=== PATIENT | female | born 1990 | race Hispanic/Latino ===

== ENCOUNTER 2023-01-10 13:20 | Emergency (ER) | payer OTHER, SELFPAY ==
[2023-01-10] VITALS (7 sets, daily range): BP systolic 118–141; BP diastolic 67–89; PULSE 80–89; RESP 18–22; TEMP 36.6–36.9; O2SAT 98–99; BMI 41.5
[2023-01-10 14:14] LABS: Add Manual Diff / Slide Review NO; Basophils Absolute Auto 100 /uL (0-100); Basophils Percent Auto 1.1 % (0-2); Eosinophils Absolute Auto 400 /uL (0-450); Eosinophils Percent Auto 4.8 % (2-4); Hematocrit 36.2 % (36-46); Hemoglobin 12.1 g/dL (12.0-16.0); Lymphocytes Absolute Auto 3200 /uL (1100-4500); Lymphocytes Percent Auto 40.6 % (25-40); Mean Corpuscular HGB Conc 33.3 % (30-36); Mean Corpuscular Hemoglobin 25.2 PG (26-34); Mean Corpuscular Volume 75.5 fL (80-100); Monocytes Absolute Auto 700 /uL (0-900); Monocytes Percent Auto 8.6 % (3-14); Neutrophils Absolute Auto 3600 /uL (1500-7000); Neutrophils Percent Auto 44.9 % (50-75); Platelet Count 361 X10^3/uL (150-400); Red Blood Cell Count 4.79 X10^6/uL (4.0-5.2); Red Cell Distribution Width 18.2 % (11.6-14.8)
--- NOTE | 2023-01-10 14:30 | PC.NURSE ---
pt states that she is soaking through 1-2 pads an hour.
[2023-01-10 14:38] LABS: BUN Creatinine Ratio 15.1 (6-22); Blood Urea Nitrogen 11 mg/dL (7-17); Calcium 9.4 mg/dL (8.4-10.2); Carbon Dioxide 24 mmol/L (22-32); Chloride 105 mmol/L (98-107); Estimated Glomerular Filt Rate > 60 mL/min (>60); Glucose 107 mg/dL (70-100); HEMOLYSIS < 15 (0-50); Potassium 3.9 mmol/L (3.4-5.1); Sodium 138 mmol/L (137-145)
--- NOTE | 2023-01-10 14:52 | ED.FEMALEGU ---
HPI - Female Genitourinary <Cholo Castro PA-C - Last Filed: 01/10/23 17:49> General Chief complaint: Vaginal Bleeding Stated complaint: stopped taking bc/excessive bleeding x2 days Time Seen by Provider: 01/10/23 14:12 Source: patient Mode of arrival: Ambulatory History of Present Illness HPI Narrative: 32-year-old female with a history of uterine polyps presents to the ED with 1 day of heavy vaginal bleeding. Patient is under the care of OBGYN Dr. Magdalena [facility]. Patient has been on control, without taking the placebo pills in between. Patient started experiencing some spotting and pelvic cramping, following which her OBGYN recommended cessation of the control for 5 days and then resuming again. Patient is on the 5th day of cessation today, states that she has been soaking a pad under 2 hours. Patient denies fever, chills, abdominal pain, nausea, vomiting, lightheadedness, chest pain, shortness of breath, syncope. Patient denies being . Patient is currently scheduled to have the uterine polyps removed in January. Patient called her OBGYN this morning, who sent her to the ED for further evaluation. Related Data Allergies Allergy/AdvReac Type Severity Reaction Status Date / Time ibuprofen Allergy Verified 01/10/23 13:28 Penicillins Allergy Verified 01/10/23 13:28 Review of Systems <Cholo Castro PA-C - Last Filed: 01/10/23 17:49> Constitutional Constitutional: Denies chills, Denies fatigue, Denies fever(s), Denies frequent falls, Denies lethargy and Denies weakness Eyes Eyes: Denies change in vision, Denies eye discharge, Denies irritation and Denies loss of vision ENT Ears, Nose, Mouth, and Throat: Denies change in voice, Denies dizziness, Denies neck pain, Denies sore throat and Denies throat swelling Cardiovascular Cardiovascular: Denies chest pain, Denies irregular heart rhythm, Denies lightheadedness, Denies palpitations, Denies dyspnea, Denies dyspnea on exertion and Denies orthopnea Respiratory Respiratory: Denies cough, Denies dyspnea, Denies dyspnea on exertion and Denies wheezing Gastrointestinal Gastrointestinal: Denies abdominal pain, Denies change in bowel habits, Denies diarrhea, Denies nausea and Denies vomiting Genitourinary Genitourinary: Reports menorrhagia Musculoskeletal Musculoskeletal: Denies neck pain and Denies numbness Integumentary/Breasts Skin/Breast: Denies pruritus, Denies erythema, Denies rash and Denies wounds Neurologic Neurologic: Denies behavioral changes, Denies confusion, Denies dizziness, Denies frequent falls, Denies loss of vision, Denies numbness and Denies weakness Psychiatric Psychiatric: Denies anxiety, Denies behavioral changes, Denies confusion, Denies depression, Denies homicidal ideation and Denies suicidal ideation Endocrine Endocrine: Denies fatigue, Denies flushing and Denies palpitations Hematologic/Lymphatic Hematologic/Lymphatic: Denies easy bruising Allergic/Immunologic Allergic/Immunologic: Denies urticaria, Denies throat swelling and Denies wheezing Patient History <Cholo Castro PA-C - Last Filed: 01/10/23 17:49> Substance Use Type: does not use Exam <Cholo Castro PA-C - Last Filed: 01/10/23 17:49> Narrative Exam Narrative: Const General:?cooperative, healthy appearing and comfortable [facility] Head:?normal to inspection Ears:?hearing grossly normal bilaterally Nose:?external nose normal Face and sinus:?normal facial exam and sinuses nontender Mouth:?oral mucosae normal Throat:?posterior oropharynx normal Eyes General:?appearance normal, both eyes and all related structures Neck Neck:?normal visual inspection and no lymphadenopathy noted Resp Effort & Inspection:?normal respiratory effort Auscultation:?clear to auscultation bilaterally Cardio Rate:?regular rate Rhythm:?regular rhythm GI Abdomen is soft, nondistended, nontender to palpation. Neuro General:?patient alert, patient awake and patient oriented x3 Initial Vital Signs Initial Vital Signs: Vital Signs Temperature 97.9 F 01/10/23 13:28 Pulse Rate 89 01/10/23 13:28 Respiratory Rate 18 01/10/23 13:28 Blood Pressure 126/83 01/10/23 13:28 Pulse Oximetry 98 01/10/23 13:28 Oxygen Delivery Method Room Air 01/10/23 13:28 <Jason Nicole MD - Last Filed: 01/11/23 08:05> Initial Vital Signs Initial Vital Signs: Vital Signs Temperature 97.9 F 01/10/23 13:28 Pulse Rate 89 01/10/23 13:28 Respiratory Rate 18 01/10/23 13:28 Blood Pressure 126/83 01/10/23 13:28 Pulse Oximetry 98 01/10/23 13:28 Oxygen Delivery Method Room Air 01/10/23 13:28 Course <Cholo Castro PA-C - Last Filed: 01/10/23 17:49> Orders Ordered: ED Orders 01/10/23 13:36 Type and Screen Stat 01/10/23 13:52 Basic Metabolic Panel Stat Complete Blood Count AUTO DIFF Stat 01/10/23 14:50 Urine Culture Stat Urine Microscopic Stat Vital Signs Vital signs: Vital Signs - 8 hr 01/10/23 13:28 01/10/23 14:42 01/10/23 14:45 Temperature 97.9 F Pulse Rate 89 83 Respiratory Rate 18 Blood Pressure 126/83 118/67 Pulse Oximetry 98 99 Oxygen Delivery Method Room Air 01/10/23 14:45 01/10/23 14:55 01/10/23 14:55 Temperature Pulse Rate 82 89 Respiratory Rate 18 18 Blood Pressure 141/89 H Pulse Oximetry 99 99 Oxygen Delivery Method 01/10/23 15:00 01/10/23 15:00 01/10/23 15:28 Temperature 98.5 F Pulse Rate 80 Respiratory Rate 22 Blood Pressure 136/78 Pulse Oximetry 99 Oxygen Delivery Method 01/10/23 15:30 01/10/23 15:30 Temperature Pulse Rate 89 Respiratory Rate 20 Blood Pressure 140/73 Pulse Oximetry 98 Oxygen Delivery Method <Jason Nicole MD - Last Filed: 01/11/23 08:05> Orders Ordered: ED Orders 01/10/23 13:36 Type and Screen Stat 01/10/23 13:52 Basic Metabolic Panel Stat Complete Blood Count AUTO DIFF Stat 01/10/23 14:50 Urine Culture Stat Urine Microscopic Stat Vital Signs Vital signs: Vital Signs - 8 hr 01/10/23 13:28 01/10/23 14:42 01/10/23 14:45 Temperature 97.9 F Pulse Rate 89 83 Respiratory Rate 18 Blood Pressure 126/83 118/67 Pulse Oximetry 98 99 Oxygen Delivery Method Room Air 01/10/23 14:45 01/10/23 14:55 01/10/23 14:55 Temperature Pulse Rate 82 89 Respiratory Rate 18 18 Blood Pressure 141/89 H Pulse Oximetry 99 99 Oxygen Delivery Method 01/10/23 15:00 01/10/23 15:00 01/10/23 15:28 Temperature 98.5 F Pulse Rate 80 Respiratory Rate 22 Blood Pressure 136/78 Pulse Oximetry 99 Oxygen Delivery Method 01/10/23 15:30 01/10/23 15:30 Temperature Pulse Rate 89 Respiratory Rate 20 Blood Pressure 140/73 Pulse Oximetry 98 Oxygen Delivery Method MDM - Female Genitourinary <Hyma CHRIS Castro - Last Filed: 01/10/23 17:49> Lab Data 01/10/23 13:52 01/10/23 13:52 Labs: Lab Results 01/10/23 01/10/23 Range/Units 13:52 14:50 WBC 8.0 (4.5-11.0) X10^3/uL RBC 4.79 (4.0-5.2) X10^6/uL Hgb 12.1 (12.0-16.0) g/dL Hct 36.2 (36-46) % MCV 75.5 L (80-100) fL MCH 25.2 L (26-34) PG MCHC 33.3 (30-36) % RDW 18.2 H (11.6-14.8) % Plt Count 361 (150-400) X10^3/uL Neut % (Auto) 44.9 L (50-75) % Lymph % (Auto) 40.6 H (25-40) % [place] % (Auto) 8.6 (3-14) % Eos % (Auto) 4.8 H (2-4) % Baso % (Auto) 1.1 (0-2) % Neut # (Auto) 3600 (8525-8780) /uL Lymph # (Auto) 3200 (8381-6259) /uL [place] # (Auto) 700 (0-900) /uL Eos # (Auto) 400 (0-450) /uL Baso # (Auto) 100 (0-100) /uL Sodium 138 (137-145) mmol/L Potassium 3.9 (3.4-5.1) mmol/L Chloride 105 (98-107) mmol/L Carbon Dioxide 24 (22-32) mmol/L BUN 11 (7-17) mg/dL Creatinine 0.73 (0.52-1.04) mg/dL Estimated GFR > 60 (>60) mL/min BUN/Creatinine Ratio 15.1 (6-22) Glucose 107 H (70-100) mg/dL Calcium 9.4 (8.4-10.2) mg/dL Urine RBC 10-30/hpf H (0-5/HPF) Urine WBC 5-10/hpf H (0-5/HPF) Ur Squamous Epith Cells 1-5 /hpf (0-5/HPF) Urine Bacteria Few (2-10) H (None) Ur Culture Indicated? Specimen cultured Point of Care Testing Test Results Negative Urine Dip Bedside Urine Glucose Negative Bedside Urine Bilirubin - Negative Bedside Urine Ketone - Negative Urine Specific [place] 1.025 Bedside Urine Occult Blood +++ Bedside Urine pH 6.0 Bedside Urine Protein - Negative Bedside Urine Urobilinogen - Negative Bedside Urine Nitrite - Negative Bedside Urine Leukocytes - Negative Esterase MDM Narrative Medical decision making narrative: 32-year-old female with a history of uterine polyps presents to the ED with 1 day of heavy vaginal bleeding. Concern for menorrhagia versus uterine polyps versus anemia versus versus other. Will obtain labs, urine hCG, UA. Labs within normal limits and H&H is stable. Urine hCG is negative. UA shows urine WBCs, however patient is asymptomatic and joint decision made to not treat at this time. Given that patient is stable, recommend follow-up with her OBGYN as soon as possible. Recommend ibuprofen. ED return precautions were discussed in detail with patient. She verbalized understanding. Medical records reviewed: Yes <Jason Nicole MD - Last Filed: 01/11/23 08:05> Lab Data Labs: Lab Results 01/10/23 01/10/23 Range/Units 13:52 14:50 WBC 8.0 (4.5-11.0) X10^3/uL RBC 4.79 (4.0-5.2) X10^6/uL Hgb 12.1 (12.0-16.0) g/dL Hct 36.2 (36-46) % MCV 75.5 L (80-100) fL MCH 25.2 L (26-34) PG MCHC 33.3 (30-36) % RDW 18.2 H (11.6-14.8) % Plt Count 361 (150-400) X10^3/uL Neut % (Auto) 44.9 L (50-75) % Lymph % (Auto) 40.6 H (25-40) % [place] % (Auto) 8.6 (3-14) % Eos % (Auto) 4.8 H (2-4) % Baso % (Auto) 1.1 (0-2) % Neut # (Auto) 3600 (0247-6803) /uL Lymph # (Auto) 3200 (5863-9471) /uL [place] # (Auto) 700 (0-900) /uL Eos # (Auto) 400 (0-450) /uL Baso # (Auto) 100 (0-100) /uL Sodium 138 (137-145) mmol/L Potassium 3.9 (3.4-5.1) mmol/L Chloride 105 (98-107) mmol/L Carbon Dioxide 24 (22-32) mmol/L BUN 11 (7-17) mg/dL Creatinine 0.73 (0.52-1.04) mg/dL Estimated GFR > 60 (>60) mL/min BUN/Creatinine Ratio 15.1 (6-22) Glucose 107 H (70-100) mg/dL Calcium 9.4 (8.4-10.2) mg/dL Urine RBC 10-30/hpf H (0-5/HPF) Urine WBC 5-10/hpf H (0-5/HPF) Ur Squamous Epith Cells 1-5 /hpf (0-5/HPF) Urine Bacteria Few (2-10) H (None) Ur Culture Indicated? Specimen cultured Point of Care Testing Test Results Negative Urine Dip Bedside Urine Glucose Negative Bedside Urine Bilirubin - Negative Bedside Urine Ketone - Negative Urine Specific [place] 1.025 Bedside Urine Occult Blood +++ Bedside Urine pH 6.0 Bedside Urine Protein - Negative Bedside Urine Urobilinogen - Negative Bedside Urine Nitrite - Negative Bedside Urine Leukocytes - Negative Esterase Discharge Plan Departure Patient Disposition: Home Clinical Impression: Menometrorrhagia Instructions: DI for Menorrhagia Activity Restrictions/Additional Instructions: You were evaluated in the ED today for heavier than usual vaginal bleeding. Your bleeding could be due to multiple reasons including cessation of the control, polyps, other reasons. Your blood work is reassuring, you are not anemic. Please follow-up with your OBGYN Dr. Magdalena Cortés for further evaluation as soon as possible. Please return to the ED if you continue to have heavy vaginal bleeding, you experience chest pain, shortness of breath, lightheadedness. You may take ibuprofen 800 mg 3 times a day with food which can help control the bleeding. Stand Alone Forms: Patient Portal/API ED Sign-out <Jason Nicole MD - Last Filed: 01/11/23 08:05> Cosign ED Attending Cossimona[place] Attestation: I was immediately available in the department for consultation. ?This documentation has been reviewed and I agree with assessment and plan. Supervised by Jason Nicole MD
[2023-01-10 15:25] LABS: Bacteria Urine Few (2-10); Culture Indicated Urine Specimen Cultured; RBC Urine 10-30/HPF (0-5/HPF); Squamous Epithelial Cell Urine 1-5 /HPF (0-5/HPF); WBC Urine 5-10/HPF (0-5/HPF)
== END 2023-01-10 15:35 | disposition home or self-care (01) ==
PROVIDERS: Emergency Medicine; Emergency Provider Student in an Organized Health Care Education/Training Program
DX: N92.1 Excessive and frequent menstruation with irregular cycle (principal)
CPT/HCPCS: 80048; 81003; 81015; 81025; 85025; 87086; 99282; 99283

== ENCOUNTER 2023-03-02 08:26 | Emergency (ER) | payer OTHER, SELFPAY ==
[2023-03-02 08:38] VITALS: BP 123/76; PULSE 83; RESP 16; TEMP 35.9; O2SAT 98; BMI 42.5
--- NOTE | 2023-03-02 08:54 | ED_ITS ---
HPI - Dizziness General Chief Complaint: Dizziness Stated Complaint: bad vertigo episode last night/head hurts/ Time Seen by Provider: 03/02/23 08:51 Source: patient Mode of arrival: Ambulatory Limitations: no limitations History of Present Illness HPI Narrative: This a 32-year-old female on oral contraceptives with history of 1 prior episode of vertigo who presents with complaint dizziness or spinning of her head and room. She states it started last night fairly abruptly while she was eating dinner. She states she has had similar symptoms in the past but several years ago. She notes she is had recent upper respiratory infection, her child tested positive for rhinovirus recently with an upper respiratory infection. She is had nasal congestion. Patient denies any fullness ears or hearing loss. She states she did develop a headache today. Was not present yesterday. She is felt generally weak but no numbness, tingling or lateralizing weakness. Patient states no loss of bowel or bladder control. No chest pain or shortness of breath. She is had nausea but no vomiting. No diarrhea or constipation. No dysuria urgency or frequency. No rash or skin changes no fevers. Patient states only medications oral contraceptives. She did have a uterine polyp removed vaginally approximately a week. She states this was uneventful and she was treated with something for yeast infection. She states no other surgeries. She is reported allergies to penicillin with angioedema and rash and ibuprofen with swelling of her whole body. No tobacco, no alcohol or illicit. She did take some Dramamine last night which she states was somewhat helpful for symptoms. She is accompanied by her . Related Data Previous Rx's Medication Instructions Recorded meclizine 25 mg chewable tablet 50 mg (2 x 25 mg) PO QID PRN 03/02/23 dizziness #20 tabs ondansetron 4 mg disintegrating 4 mg PO Q6H PRN nausea and 03/02/23 tablet vomiting #10 tabs prednisone 10 mg tablets in a dose See Rx Instructions PO .COMPLEX 03/02/23 pack #45 ea Allergies Allergy/AdvReac Type Severity Reaction Status Date / Time ibuprofen Allergy Swelling Verified 03/02/23 08:44 of body Penicillins Allergy Swelling Verified 03/02/23 08:44 of Lip/Tongue/Throat Review of Systems Review of Systems ROS Unobtainable: All systems reviewed & are unremarkable except as noted in HPI and below Patient History Social History Smoking Status: Never smoker Smoking Status: Never smoker Substance Use Type: does not use Exam Narrative Exam Narrative: GEN: well nourished, well appearing e-mail, alert and oriented x 3, patient appears to be in mild distress. HEENT: Atraumatic, pupils are equal round reactive to light, extraocular movements are intact, no nystagmus but does worsening symptoms, nares are clear, TMs show a mild amount of fluid bilaterally no erythema, TMs are retracted with no loss of light reflex. Normal canal bilaterally, there is no conjunctival pallor. Throat is clear without any exudates, erythema, tonsillar enlargement or uvular deviation, no facial droop. No meningeal signs. HEART: Regular rate and rhythm without murmur, clicks, rubs. LUNGS:Lungs clear to auscultation, no wheezes, rales, crackles, chest moves symmetrically ABD:bowel sounds normal, soft, non-tender, no guarding, rebound, rigidity, no masses noted, no hepatosplenomegaly :No CVA tenderness MSCL: Non-tender, no muscle atrophy, muscles strength 5/5 upper and lower extremities, full range of motion. NEURO:CN 2-12 intact, sensation normal, finger nose finger test normal, heel smith test normal. No dysarthria or aphasia. SKIN: No rash, erythema or other skin changes noted. Initial Vital Signs Initial Vital Signs: Vital Signs Temperature 96.7 F L 03/02/23 08:38 Pulse Rate 83 03/02/23 08:38 Respiratory Rate 16 03/02/23 08:38 Blood Pressure 123/76 03/02/23 08:38 Pulse Oximetry 98 03/02/23 08:38 Oxygen Delivery Method Room Air 03/02/23 08:38 Course Orders Ordered: ED Orders 03/02/23 09:50 CBC Auto Diff [Complete Blood Count AUTO DIFF] Stat CMP [Comprehensive Metabolic Panel] Stat Lipase Stat Discontinued Medications Acetaminophen (Acetaminophen 325 Mg Tablet) 975 mg PO NOW ONE Stop: 03/02/23 09:06 Last Admin: 03/02/23 09:59 Dose: 975 mg Documented By: AMV Sodium Chloride (Normal Saline 0.9%) 1,000 mls @ 1,000 mls/hr IV BOLUS ONE Stop: 03/02/23 10:04 Last Infusion: 03/02/23 11:11 Dose: Infused Documented By: Admin: 03/02/23 10:00 Dose: 1,000 mls/hr Documented By: AMV Meclizine HCl (Meclizine Hcl 12.5 Mg Tablet) 50 mg PO NOW ONE Stop: 03/02/23 08:53 Last Admin: 03/02/23 08:56 Dose: 50 mg Documented By: AMV Ondansetron HCl (Ondansetron 4 Mg/2 Ml Inj) 4 mg IV NOW ONE Stop: 03/02/23 09:06 Last Admin: 03/02/23 09:59 Dose: 4 mg Documented By: AMV Vital Signs Vital signs: Vital Signs - 8 hr 03/02/23 11:30 Pulse Rate 75 Blood Pressure 115/71 Pulse Oximetry 98 Oxygen Delivery Method Room Air MDM - Dizziness Lab Data 03/02/23 09:50 03/02/23 09:50 Labs: Lab Results 03/02/23 Range/Units 09:50 WBC 16.1 H (4.5-11.0) X10^3/uL RBC 4.81 (4.0-5.2) X10^6/uL Hgb 11.9 L (12.0-16.0) g/dL Hct 36.4 (36-46) % MCV 75.8 L (80-100) fL MCH 24.8 L (26-34) PG MCHC 32.8 (30-36) % RDW 15.8 H (11.6-14.8) % Plt Count 322 (150-400) X10^3/uL Neut % (Auto) 71.6 (50-75) % Lymph % (Auto) 19.7 L (25-40) % [place] % (Auto) 5.8 (3-14) % Eos % (Auto) 2.6 (2-4) % Baso % (Auto) 0.3 (0-2) % Neut # (Auto) 99285 H (0896-7856) /uL Lymph # (Auto) 3200 (2093-7432) /uL [place] # (Auto) 900 (0-900) /uL Eos # (Auto) 400 (0-450) /uL Baso # (Auto) 100 (0-100) /uL Sodium 136 L (137-145) mmol/L Potassium 4.0 (3.4-5.1) mmol/L Chloride 104 (98-107) mmol/L Carbon Dioxide 23 (22-32) mmol/L BUN 7 (7-17) mg/dL Creatinine 0.71 (0.52-1.04) mg/dL Estimated GFR > 60 (>60) mL/min BUN/Creatinine Ratio 9.9 (6-22) Glucose 100 (70-100) mg/dL Calcium 9.5 (8.4-10.2) mg/dL Total Bilirubin 0.4 (0.2-1.3) mg/dL AST 20 (14-36) IU/L ALT 16 (<35) IU/L Alkaline Phosphatase 46 (38-126) U/L Total Protein 7.7 (6.3-8.2) g/dL Albumin 4.1 (3.5-5.0) g/dL Globulin 3.6 (1.7-4.1) g/dL Albumin/Globulin Ratio 1.1 (1.0-2.8) Lipase 57 (23-300) U/L Point of Care Testing Test Results Negative Imaging Data CT scan - head: Radiologist's Impression: Close Head CT (Signed) Ave Tejada - 03/02/23 [place] [address] CT Scan Report Signed Patient: Roz Camp MR#: [id number] : 1990 Acct:[id number] Age/Sex: 32 / F Date of Service: 03/02/23 Loc: ED Accession Number: [id number] Procedure: CT head/brain wo con Ordering Provider: Magdalena Alvarez D.O. PROCEDURE: CT HEAD/BRAIN WO CON INDICATIONS: vertigo has before, recent uri, but new jimenez TECHNIQUE: Noncontrast 4.5 mm thick angled axial sections acquired from the foramen magnum to the vertex, with coronal and sagittal reformats. For radiation dose reduction, the following was used: automated exposure control, adjustment of mA and/or kV according to patient size. COMPARISON: None. FINDINGS: Image quality: Excellent. CSF spaces: Basal cisterns are patent. No extra-axial fluid collections. Ventricles are normal in size and shape. Brain: No midline shift. No intracranial masses or hemorrhage. Nguyen-white matter interface is normal. Skull and face: Calvarium and visualized facial bones are intact, without suspicious lesions. Sinuses: Visualized sinuses and mastoids are clear. IMPRESSION: No acute intracranial pathology. Dictated by: Ave Tejada M.D. on 03/02/2023 at 9:43 Approved by: Ave Tejada M.D. on 03/02/2023 at 9:45 [facility] Narrative Medical decision making narrative: 32-year-old female with vertigo likely a viral labyrinthitis. Patient defers respiratory testing as her daughter tested positive for rhinovirus and she developed symptoms shortly thereafter. Patient has had vertigo once before but states the headache is new and different that started today. She denies some generalized weakness but no other acute neurologic changes on examination. Because of change in typical pattern head CT was obtained, labs. Head CT is negative. Labs show a leukocytosis of 16, hemoglobin 11.9 but a crit of 36. Microcytic. Platelets of 322 with leftward shift. Sodium 136 with otherwise normal electrolytes, creatinine and LFTs. Point of care was negative. Patient received oral meclizine, Tylenol, Zofran and fluids. On recheck, patient states she is feeling much better. But no other obvious sources of bacterial infection I suspect this is more a viral source causing symptoms today. Her CT showed no acute changes. We did discuss return precautions symptoms to watch for, patient has been afebrile with a appropriate vitals throughout her stay. Discussed with patient will treat with meclizine, Zofran and give steroid with taper. Discharge Plan Departure Patient Disposition: Home Clinical Impression: Vertigo, Labyrinthitis, viral Instructions: DI for Vertigo Activity Restrictions/Additional Instructions: Suspect her vertigo symptoms today are secondary to the upper respiratory infection that you have this can sometimes be called viral labyrinthitis. If symptoms are persisting please follow up with ENT. Call the number below to set up an appointment. You may take meclizine 1-2 tablets every 6 hours as needed for symptoms. This helps with the vertigo symptoms. Zofran 1 tablet every 6 hours as needed for nausea. Take steroids until completed, take 60 mg once daily for 5 days, then decrease by 1 tablet or 10 mg each day. You will take mg 6 tabs once daily for 5 days, then 5 tablets x1 day, then 4 tablets x1 day, 3 tablets x1 day, then tablets x1 day then 1 tablet times one day. Prescription sent to the [facility] pharmacy in [place]. Can take Tylenol up to a 1000 mg every 6 hours as needed for headaches. Please return for new fevers, rapidly worsening symptoms, increasing headaches, persistent vomiting, new vision changes, numbness tingling or weakness, facial droop or difficulty with movement or unable to ambulate safely. Prescriptions: New meclizine 25 mg tablet,chewable 50 mg PO QID PRN (Reason: dizziness) Qty: 20 0RF ondansetron 4 mg tablet,disintegrating 4 mg PO Q6H PRN (Reason: nausea and vomiting) Qty: 10 0RF prednisone 10 mg tablets,dose pack See Rx Instructions .ROUTE .COMPLEX Qty: 45 0RF Rx Instructions: Take 60 mg p.o. x 5 days, then 50 mg p.o. x1 day, then 40 mg p.o. x1 day, then 30 mg p.o. x1 day, then 20 mg p.o. x1 day, then 10 mg p.o. times x1 Referrals: Mendoza Calix MD [Physician] - Stand Alone Forms: Patient Portal/API
[2023-03-02] MEDS: MECLIZINE HCL 12.5 MG TABLET 50 MG PO (08:56)
--- NOTE | 2023-03-02 09:05 | DI.CT.S_ITS ---
PROCEDURE: CT HEAD/BRAIN WO CON INDICATIONS: vertigo has before, recent uri, but new jimenez TECHNIQUE: Noncontrast 4.5 mm thick angled axial sections acquired from the foramen magnum to the vertex, with coronal and sagittal reformats. For radiation dose reduction, the following was used: automated exposure control, adjustment of mA and/or kV according to patient size. COMPARISON: None. FINDINGS: Image quality: Excellent. CSF spaces: Basal cisterns are patent. No extra-axial fluid collections. Ventricles are normal in size and shape. Brain: No midline shift. No intracranial masses or hemorrhage. Nguyen-white matter interface is normal. Skull and face: Calvarium and visualized facial bones are intact, without suspicious lesions. Sinuses: Visualized sinuses and mastoids are clear. IMPRESSION: No acute intracranial pathology. Dictated by: Ave Tejada M.D. on 03/02/2023 at 9:43 Approved by: Ave Tejada M.D. on 03/02/2023 at 9:45
[2023-03-02] MEDS: ACETAMINOPHEN 325 MG TABLET 975 MG PO (09:59)
[2023-03-02] MEDS: ONDANSETRON 4 MG/2 ML INJ IV (09:59)
[2023-03-02] MEDS: SODIUM CHLORIDE 0.9% 1,000 ML 1000 ML IV (10:00)
[2023-03-02 10:07] LABS: Add Manual Diff / Slide Review NO; Basophils Absolute Auto 100 /uL (0-100); Basophils Percent Auto 0.3 % (0-2); Eosinophils Absolute Auto 400 /uL (0-450); Eosinophils Percent Auto 2.6 % (2-4); Hematocrit 36.4 % (36-46); Hemoglobin 11.9 g/dL (12.0-16.0); Lymphocytes Absolute Auto 3200 /uL (1100-4500); Lymphocytes Percent Auto 19.7 % (25-40); Mean Corpuscular HGB Conc 32.8 % (30-36); Mean Corpuscular Hemoglobin 24.8 PG (26-34); Mean Corpuscular Volume 75.8 fL (80-100); Monocytes Absolute Auto 900 /uL (0-900); Monocytes Percent Auto 5.8 % (3-14); Neutrophils Absolute Auto 11500 /uL (1500-7000); Neutrophils Percent Auto 71.6 % (50-75); Platelet Count 322 X10^3/uL (150-400); Red Blood Cell Count 4.81 X10^6/uL (4.0-5.2); Red Cell Distribution Width 15.8 % (11.6-14.8); White Blood Cell Count 16.1 X10^3/uL (4.5-11.0)
[2023-03-02 10:24] LABS: Alanine Aminotransferase 16 IU/L (<35); Albumin 4.1 g/dL (3.5-5.0); Albumin Globulin Ratio 1.1 (1.0-2.8); Alkaline Phosphatase 46 U/L (38-126); Aspartate Aminotransferase 20 IU/L (14-36); BUN Creatinine Ratio 9.9 (6-22); Bilirubin Total 0.4 mg/dL (0.2-1.3); Blood Urea Nitrogen 7 mg/dL (7-17); Calcium 9.5 mg/dL (8.4-10.2); Carbon Dioxide 23 mmol/L (22-32); Chloride 104 mmol/L (98-107); Estimated Glomerular Filt Rate > 60 mL/min (>60); Globulin 3.6 g/dL (1.7-4.1); Glucose 100 mg/dL (70-100); HEMOLYSIS < 15 (0-50); Lipase 57 U/L (23-300); Sodium 136 mmol/L (137-145); Total Protein 7.7 g/dL (6.3-8.2)
[2023-03-02 11:30] VITALS: BP 115/71; PULSE 75; O2SAT 98
== END 2023-03-02 11:30 | disposition home or self-care (01) ==
PROVIDERS: Emergency Provider Emergency Medicine
DX: R42 Dizziness and giddiness (principal); H83.09 Labyrinthitis, unspecified ear
CPT/HCPCS: 36415; 70450; 80053; 81025; 83690; 85025; 96361; 96374; 99284; J2405

== ENCOUNTER → 2023-10-20 09:52 | Outpatient (CLI) | payer OTHER, SELFPAY ==
[2023-10-20 10:33] LABS: Appearance Urine UA CLEAR; Bilirubin Urine UA NEGATIVE (NEGATIVE); Color Urine UA YELLOW; Glucose Urine UA NEGATIVE (Negative); Ketones Urine UA NEGATIVE (NEGATIVE); Leukocyte Esterase Urine UA NEGATIVE (NEGATIVE); Nitrite Urine UA NEGATIVE (Negative); Occult Blood Urine UA NEGATIVE (Negative); Protein Urine UA NEGATIVE (Negative); Urobilinogen Urine UA 0.2 E.U./dL (0.2); pH Urine UA 6.5 (4.5-8.0)
[2023-10-20 12:02] LABS: Add Manual Diff / Slide Review NO; Basophils Absolute Auto 100 /uL (0-100); Basophils Percent Auto 0.4 % (0-2); Eosinophils Absolute Auto 100 /uL (0-450); Eosinophils Percent Auto 1.2 % (2-4); Hematocrit 40.4 % (36-46); Hemoglobin 13.8 g/dL (12.0-16.0); Lymphocytes Absolute Auto 2800 /uL (1100-4500); Lymphocytes Percent Auto 24.9 % (25-40); Mean Corpuscular HGB Conc 34.1 % (30-36); Mean Corpuscular Hemoglobin 27.3 PG (26-34); Monocytes Absolute Auto 800 /uL (0-900); Monocytes Percent Auto 6.7 % (3-14); Neutrophils Absolute Auto 7600 /uL (1500-7000); Neutrophils Percent Auto 66.8 % (50-75); Platelet Count 279 X10^3/uL (150-400); Red Blood Cell Count 5.05 X10^6/uL (4.0-5.2); Red Cell Distribution Width 15.2 % (11.6-14.8); White Blood Cell Count 11.4 X10^3/uL (4.5-11.0)
[2023-10-20 12:13] LABS: Hemoglobin A1C% w Est Avg Glu 5.2 % (4.0-6.0)
[2023-10-21 07:11] LABS: RPR Screen Non Reactive (Non Reactive)
[2023-10-21 08:13] LABS: Varicella IgG Antibody 1742 index (Immune >165)
[2023-10-23 17:55] LABS: Hepatitis B Surface Antigen NEGATIVE s/c (NEGATIVE); Rubella Antibody IgG 8.5 IU/mL (>15)
[2023-10-23 18:11] LABS: HIV 1 & 2 Ab/Ag 4th Gen Combo NEGATIVE (NEGATIVE); Hep C Virus Ab w/Reflex Quant NEGATIVE s/c (NEGATIVE)
== END ==
PROVIDERS: Referring Provider Family Medicine; Visit Provider Family Medicine
DX: Z34.01 Encounter for supervision of normal first pregnancy, first trimester (principal); E28.2 Polycystic ovarian syndrome
CPT/HCPCS: 36415; 80055; 81003; 83036; 86787; 86803; 86850; 86900; 86901; 87086; 87389

== ENCOUNTER 2023-11-09 11:39 | Emergency (ER) | payer OTHER, SELFPAY ==
[2023-11-09] VITALS (8 sets, daily range): BP systolic 113–140; BP diastolic 61–87; PULSE 81–116; RESP 16; TEMP 37.1; O2SAT 97–99; BMI 44.8
--- NOTE | 2023-11-09 11:58 | DI.US.S_ITS ---
PROCEDURE: US OB LIMITED INDICATIONS: vag bleeding OUTSIDE/PRIOR DATING DATA: Last menstrual period (LMP): 07/23/2023. LMP-based estimated date of delivery (KATY): 04/28/2024. First dating scan (date and location): Not applicable. Estimated date of delivery (KATY) from first dating scan: Not applicable. The calculations are made using the working KATY of 04/28/2024. TECHNIQUE: Real-time scanning was performed of the fetus, with image documentation and biometric measurements. Endovaginal scanning: Not performed COMPARISON: None. FINDINGS: General: A single living intrauterine gestation is present. Presentation: Vertex. Placenta: Placental position is posterio , without previa. Amniotic fluid index: Subjectively normal heart rate: 152 beats per minute. Maternal cervical canal: 3.8 cm long. Normal lower limit is 2.5 cm. biometrics: Biparietal diameter: 3.2 cm, 16 weeks 1 day Head circumference: 12.8 cm, 16 weeks 3 days Abdominal circumference: 10.3 cm, 16 weeks 2 days Femur length: 2.3 cm, 17 weeks 0 days Clinically estimated gestational age: 15 weeks 4 days Composite gestational age from present scan: 16 weeks 3 days Other: Not applicable. IMPRESSION: Living relatively early 2nd trimester intrauterine with no sonographic evidence of complications. We strive to produce accurate, complete, and clear reports of imaging services. To assist us in improving patient care, this report was composed using standard report templates and voice recognition software. Therefore, it may contain abnormal punctuation, insertions and/or omissions. Occasional wrong-word or sound-alike substitutions may occur. Though we review the report and make efforts to correct it, we do recommend that the report be read carefully in proper context to recognize any text inaccuracies. Dictated by: Aram Stockton M.D. on 11/09/2023 at 14:03 Approved by: Aram Stockton M.D. on 11/09/2023 at 14:05
--- NOTE | 2023-11-09 12:11 | ED.GENADULT ---
HPI - General Adult General Chief complaint: Vaginal Bleeding Stated complaint: 15wks , vaginal bleeding Time Seen by Provider: 11/09/23 12:01 Source: patient Mode of arrival: Ambulatory History of Present Illness HPI narrative: Patient is a 32-year-old female. She was a at approximately 15 weeks EGA based on last menstrual cycle and also 1st trimester ultrasound. She did receive fertility help in order to get during this . She has been seen by gastroenterologist. Per her report she has a single live intrauterine based on a prior ultrasound. She was here because this morning after eating breakfast she felt like that she urinated herself. She noticed that she had quite a bit of vaginal bleeding. She then went to the bathroom and had more vaginal bleeding. No fevers. Some nausea but no vomiting. Is having some lower abdominal cramping. No urinary symptoms. Related Data Home Medications Medication Instructions Recorded Confirmed albuterol sulfate 90 mcg/actuation 2 puff inhalation Q4-6H PRN 09/20/23 10/20/23 aerosol inhaler cholecalciferol (vitamin D3) 50 50 mcg PO DAILY 09/20/23 10/20/23 mcg (2,000 unit) capsule vitamin-ferrous sulfate tab PO 09/20/23 10/20/23 27 mg iron-folic acid 0.8 mg tablet Previous Rx's Medication Instructions Recorded aspirin 81 mg tablet,delayed 81 mg PO DAILY #90 tabs 10/20/23 release (Adult Aspirin Regimen) Allergies Allergy/AdvReac Type Severity Reaction Status Date / Time Penicillins Allergy Severe Anaphylaxis Verified 10/20/23 09:19 ibuprofen Allergy Swelling Verified 10/20/23 09:19 of body Review of Systems Review of Systems ROS Unobtainable: All systems reviewed & are unremarkable except as noted in HPI and below Patient History Medical History Uterine polyp Surgical History (Updated 09/20/23 @ 09:40 by Shruti Malave RN) [place] teeth extracted History of gynecologic surgery (~02/2023) Family History (Updated 09/20/23 @ 10:01 by Shruti Malave RN) Mother Lupus Early onset Alzheimer's dementia Migraine Brain mass Preeclampsia Brother Autism Cardiomegaly Developmental disability Sickle-cell trait Sister Heart murmur Preeclampsia Grandmother Hypertension Pre-diabetes Breast cancer Alzheimer's dementia Aunt Osteoporosis Aunt ALS (amyotrophic lateral sclerosis) Family/Other Uterine cancer Family/Other Autism Father Mental health disorder Social History marital status: number of children: 1 (raising their nephew) household members: spouse and children lives independently: Yes caregiver/support person: Yes housing: house pets and animals: Yes (dogs) education level: college (Associate's degree) occupational status: unemployed current occupational exposures/hazards: No veda/jehovah's witness: Worship special veda needs: No travel history: over 6 months ago seatbelt use: always working smoke detector in home: Yes fire extinguisher in home: No carbon monox detector in home: Yes firearms in home: No do you feel safe at home: Yes Smoking Status: Never smoker second hand exposure: No alcohol intake: former (rarely when not ) substance use type: does not use during the past year weight has: other (fluctuates ~20 lb) well-balanced diet: daily or most days daily servings fruits/ve or more times/day caffeine: Yes (minimal in recent history) Type(s) of exercise: walking frequency: 5-6 times per week Smoking Status: Never smoker Substance Use Type: does not use Exam Initial Vital Signs Initial Vital Signs: Vital Signs Temperature 98.7 F 11/09/23 11:48 Pulse Rate 92 H 11/09/23 11:48 Respiratory Rate 16 11/09/23 11:48 Blood Pressure 140/87 11/09/23 11:48 Pulse Oximetry 98 11/09/23 11:48 Oxygen Delivery Method Room Air 11/09/23 11:48 Const General: cooperative, comfortable and No ill appearing HENMT Head: normal to inspection and normocephalic Resp Effort & Inspection: normal respiratory effort Auscultation: clear to auscultation bilaterally Cardio Rate: regular rate Rhythm: regular rhythm GI Inspection: normal to inspection and non-distended Skin General: no rashes or lesions noted Neuro General: patient alert, patient awake and moves all extremities Extrem General: normal to inspection and capillary refill normal Course Orders Ordered: ED Orders 11/09/23 11:57 Urine Microscopic Stat 11/09/23 11:58 US OB limited Stat 11/09/23 12:10 Complete Blood Count AUTO DIFF Stat Comprehensive Metabolic Panel Stat HCG Quantitative /Beta subunit Stat Type and Screen Stat Vital Signs Vital signs: Vital Signs - 8 hr 11/09/23 11:48 11/09/23 12:12 11/09/23 12:13 Temperature 98.7 F Pulse Rate 92 H 96 H Respiratory Rate 16 Blood Pressure 140/87 133/83 Pulse Oximetry 98 97 Oxygen Delivery Method Room Air 11/09/23 12:13 11/09/23 12:30 11/09/23 12:30 Temperature Pulse Rate 98 H 93 H Respiratory Rate Blood Pressure 124/79 Pulse Oximetry 97 98 Oxygen Delivery Method Room Air 11/09/23 13:00 11/09/23 13:01 11/09/23 13:01 Temperature Pulse Rate 116 H 104 H Respiratory Rate Blood Pressure 128/72 Pulse Oximetry 99 97 Oxygen Delivery Method 11/09/23 13:30 11/09/23 13:30 Temperature Pulse Rate 84 Respiratory Rate Blood Pressure 113/64 Pulse Oximetry 97 Oxygen Delivery Method Medical Decision Making Lab Data Lab results reviewed: Yes I reviewed the patient's lab results. 11/09/23 12:10 11/09/23 12:10 Labs: Lab Results 11/09/23 11/09/23 Range/Units 11:57 12:10 WBC 11.1 H (4.5-11.0) X10^3/uL RBC 4.63 (4.0-5.2) X10^6/uL Hgb 12.7 (12.0-16.0) g/dL Hct 37.6 (36-46) % MCV 81.2 (80-100) fL MCH 27.4 (26-34) PG MCHC 33.8 (30-36) % RDW 15.4 H (11.6-14.8) % Plt Count 259 (150-400) X10^3/uL Neut % (Auto) 66.1 (50-75) % Lymph % (Auto) 25.0 (25-40) % [place]oula % (Auto) 7.5 (3-14) % Eos % (Auto) 0.9 L (2-4) % Baso % (Auto) 0.5 (0-2) % Neut # (Auto) 7300 H (9470-6454) /uL Lymph # (Auto) 2800 (6137-6598) /uL [place] # (Auto) 800 (0-900) /uL Eos # (Auto) 100 (0-450) /uL Baso # (Auto) 100 (0-100) /uL Sodium 135 L (137-145) mmol/L Potassium 3.6 (3.4-5.1) mmol/L Chloride 108 H (98-107) mmol/L Carbon Dioxide 18 L (22-32) mmol/L BUN 4 L (7-17) mg/dL Creatinine 0.54 (0.52-1.04) mg/dL Estimated GFR > 60 (>60) mL/min BUN/Creatinine Ratio 7.4 (6-22) Glucose 110 H (70-100) mg/dL Calcium 9.5 (8.4-10.2) mg/dL Total Bilirubin 0.3 (0.2-1.3) mg/dL AST 25 (14-36) IU/L ALT 21 (<35) IU/L Alkaline Phosphatase 45 (38-126) U/L Total Protein 6.9 (6.3-8.2) g/dL Albumin 4.0 (3.5-5.0) g/dL Globulin 2.9 (1.7-4.1) g/dL Albumin/Globulin Ratio 1.4 (1.0-2.8) HCG, Quant 40716 mIU/mL Urine RBC 5-10/hpf H (0-5/HPF) Urine WBC None seen (0-5/HPF) Ur Squamous Epith Cells 0-1 /hpf (0-5/HPF) Urine Bacteria Moderate (10-30) H (None) Ur Culture Indicated? Cult not indicated Vol Urine Centrifuged 10ml (spun) Blood Type A Positive Antibody Screen Negative Urine Dip Bedside Urine Glucose Negative Bedside Urine Bilirubin - Negative Bedside Urine Ketone - Negative Urine Specific Marty 1.015 Bedside Urine Occult Blood +++ Bedside Urine pH 6.5 Bedside Urine Protein - Negative Bedside Urine Urobilinogen - Negative Bedside Urine Nitrite - Negative Bedside Urine Leukocytes - Negative Esterase Point of care testing: Urine Dip Bedside Urine Glucose Negative Bedside Urine Bilirubin - Negative Bedside Urine Ketone - Negative Urine Specific Marty 1.015 Bedside Urine Occult Blood +++ Bedside Urine pH 6.5 Bedside Urine Protein - Negative Bedside Urine Urobilinogen - Negative Bedside Urine Nitrite - Negative Bedside Urine Leukocytes - Negative Esterase Imaging Data US - OB: Radiologist's Impression: ROCEDURE: US OB LIMITED INDICATIONS: vag bleeding OUTSIDE/PRIOR DATING DATA: Last menstrual period (LMP): 07/23/2023. LMP-based estimated date of delivery (KATY): 04/28/2024. First dating scan (date and location): Not applicable. Estimated date of delivery (KATY) from first dating scan: Not applicable. The calculations are made using the working KATY of 04/28/2024. TECHNIQUE: Real-time scanning was performed of the fetus, with image documentation and biometric measurements. Endovaginal scanning: Not performed COMPARISON: None. FINDINGS: General: A single living intrauterine gestation is present. Presentation: Vertex. Placenta: Placental position is posterio , without previa. Amniotic fluid index: Subjectively normal heart rate: 152 beats per minute. Maternal cervical canal: 3.8 cm long. Normal lower limit is 2.5 cm. biometrics: Biparietal diameter: 3.2 cm, 16 weeks 1 day Head circumference: 12.8 cm, 16 weeks 3 days Abdominal circumference: 10.3 cm, 16 weeks 2 days Femur length: 2.3 cm, 17 weeks 0 days Clinically estimated gestational age: 15 weeks 4 days Composite gestational age from present scan: 16 weeks 3 days Other: Not applicable. IMPRESSION: Living relatively early 2nd trimester intrauterine with no sonographic evidence of complications. MDM Narrative Medical decision making narrative: Ultrasound today shows single live intrauterine had expected dates given the patient's reported date. I had a discussion with her regarding her symptoms. We did discuss the ultrasound today. She has a follow-up within the next week with her OB provider. She was given return precautions. She expressed understanding and agreement with the plan. Discharge Plan Departure Patient Disposition: Home Clinical Impression: Threatened miscarriage Instructions: DI for Vaginal Bleeding During Activity Restrictions/Additional Instructions: Recommend that you continue to take all of your medications as directed. Keep all of your scheduled medical appointments. Return to the emergency department for new or worsening symptoms. Prescriptions: No Action aspirin [Adult Aspirin Regimen] 81 mg tablet,delayed release (DR/EC) 81 mg PO DAILY Qty: 90 3RF vit-ferrous sulfat-FA 27 mg iron- 0.8 mg tablet PO cholecalciferol (vitamin D3) 50 mcg (2,000 unit) capsule 50 mcg PO DAILY albuterol sulfate 90 mcg/actuation HFA aerosol inhaler 2 puff inhalation Q4-6H PRN Referrals: Jeanie Apodaca MD [Primary Care Provider] - Stand Alone Forms: Patient Portal/API
[2023-11-09 12:22] LABS: Add Manual Diff / Slide Review NO; Basophils Absolute Auto 100 /uL (0-100); Basophils Percent Auto 0.5 % (0-2); Eosinophils Absolute Auto 100 /uL (0-450); Eosinophils Percent Auto 0.9 % (2-4); Hematocrit 37.6 % (36-46); Hemoglobin 12.7 g/dL (12.0-16.0); Lymphocytes Absolute Auto 2800 /uL (1100-4500); Mean Corpuscular HGB Conc 33.8 % (30-36); Mean Corpuscular Hemoglobin 27.4 PG (26-34); Mean Corpuscular Volume 81.2 fL (80-100); Monocytes Absolute Auto 800 /uL (0-900); Monocytes Percent Auto 7.5 % (3-14); Neutrophils Absolute Auto 7300 /uL (1500-7000); Neutrophils Percent Auto 66.1 % (50-75); Platelet Count 259 X10^3/uL (150-400); Red Blood Cell Count 4.63 X10^6/uL (4.0-5.2); Red Cell Distribution Width 15.4 % (11.6-14.8); White Blood Cell Count 11.1 X10^3/uL (4.5-11.0)
[2023-11-09 12:35] LABS: Alanine Aminotransferase 21 IU/L (<35); Albumin Globulin Ratio 1.4 (1.0-2.8); Alkaline Phosphatase 45 U/L (38-126); Aspartate Aminotransferase 25 IU/L (14-36); BUN Creatinine Ratio 7.4 (6-22); Bilirubin Total 0.3 mg/dL (0.2-1.3); Blood Urea Nitrogen 4 mg/dL (7-17); Calcium 9.5 mg/dL (8.4-10.2); Carbon Dioxide 18 mmol/L (22-32); Chloride 108 mmol/L (98-107); Estimated Glomerular Filt Rate > 60 mL/min (>60); Globulin 2.9 g/dL (1.7-4.1); Glucose 110 mg/dL (70-100); HEMOLYSIS < 15 (0-50); Potassium 3.6 mmol/L (3.4-5.1); Sodium 135 mmol/L (137-145); Total Protein 6.9 g/dL (6.3-8.2)
[2023-11-09 12:53] LABS: Bacteria Urine Moderate (10-30); Culture Indicated Urine Cult Not Indicated; RBC Urine 5-10/HPF (0-5/HPF); Squamous Epithelial Cell Urine 0-1 /HPF (0-5/HPF); Urine Volume 10mL (spun); WBC Urine None Seen (0-5/HPF)
[2023-11-09 13:24] LABS: HCG Quantitative /Beta subunit 21957 mIU/mL
== END 2023-11-09 14:27 | disposition home or self-care (01) ==
PROVIDERS: Emergency Provider Emergency Medicine; PCP Family Medicine
DX: O20.0 Threatened abortion (principal); Z3A.15 15 weeks gestation of pregnancy
CPT/HCPCS: 36415; 76815; 80053; 81003; 81015; 84702; 85025; 86850; 86900; 86901; 99283; 99284

== ENCOUNTER → 2023-11-10 14:57 | Outpatient (CLI) | payer OTHER, SELFPAY | PROVIDERS: PCP Family Medicine; Visit Provider Family Medicine | DX: N93.9 Abnormal uterine and vaginal bleeding, unspecified (principal) | CPT/HCPCS: 87210 ==

== ENCOUNTER → 2023-11-17 15:04 | Outpatient (CLI) | payer OTHER, SELFPAY ==
[2023-11-21 21:12] LABS: AFP Value 52.7 ng/mL (.); Gest Age on Col Date 16.7 weeks (.); Insulin Dep Diabetes No (.); OSBR Risk 1IN 1058 (.); Results Report (.); Test Results *Screen Negative* (.)
== END ==
PROVIDERS: PCP Family Medicine; Referring Provider Family Medicine; Visit Provider Family Medicine
DX: Z34.80 Encounter for supervision of other normal pregnancy, unspecified trimester (principal)
CPT/HCPCS: 36415; 82105

== ENCOUNTER → 2023-12-08 12:57 | Outpatient (CLI) | payer OTHER, SELFPAY ==
--- NOTE | 2023-12-08 12:58 | DI.US.S_ITS ---
PROCEDURE: US OB >= 14 WEEKS FETUS INDICATIONS: anatomy OUTSIDE/PRIOR DATING DATA: Last menstrual period (LMP): 07/23/2023. LMP-based estimated date of delivery (KATY): 04/28/2024. The calculations are made using the clinical KATY of 04/28/2024. TECHNIQUE: Real-time scanning was performed of the fetus, with image documentation and biometric measurements. Endovaginal scanning: Not performed COMPARISON: None. FINDINGS: General: A single living intrauterine gestation is present. Presentation: Vertex. Placenta: Placental position is posterior , without previa. Amniotic fluid index: 17.3 cm, normal range is 5-24 cm. Single deepest vertical pocket is 4.8 cm. heart rate: 165 beats per minute. Maternal cervical canal: 5.6 cm long. Normal lower limit is 2.5 cm. biometrics: Biparietal diameter: 4.8 cm, 20 weeks 3 days Head circumference: 17.5 cm, 20 weeks 0 days Abdominal circumference: 16.0 cm, 21 weeks 0 days Femur length: 3.3 cm, 20 weeks 3 days Clinically estimated gestational age: 19 weeks 5 days Composite gestational age from present scan: 20 weeks 3 days Estimated weight and percentile: 371 g, 93rd percentile Anatomic survey: Neuro: Ventricles are non-dilated at less than 10 mm. Cisterna magna is normal at 3-11 mm. Cerebellum is normal in size and morphology. Nuchal skin fold: Normal at less than 6 mm between 14-21 weeks gestational age. Face: Nose and lips, facial profile are normal. Spine: No evidence for spina bifida. Heart: 4-chambered heart is present, with normal ventricular outflow tracts. Diaphragm: Diaphragm is intact. Stomach: Left-sided stomach is present. Kidneys: No hydronephrosis. Normal is less than 5 mm in 2nd trimester, less than 7 mm in 3rd trimester. Cord: 3-vessel cord has orthotopic insertion. Bladder: Normal in size. Extremities: All 4 extremities identified. IMPRESSION: Single living intrauterine at 19 weeks 5 days, KATY 04/28/2024. Estimated weight of 371 g, 93rd percentile. Otherwise, normal anatomy survey. We strive to produce accurate, complete, and clear reports of imaging services. To assist us in improving patient care, this report was composed using standard report templates and voice recognition software. Therefore, it may contain abnormal punctuation, insertions and/or omissions. Occasional wrong-word or sound-alike substitutions may occur. Though we review the report and make efforts to correct it, we do recommend that the report be read carefully in proper context to recognize any text inaccuracies. Dictated by: Maximus Chow M.D. on 12/08/2023 at 16:36 Approved by: Maximus Chow M.D. on 12/08/2023 at 16:38
== END ==
LOC: US 12:58
PROVIDERS: PCP Family Medicine; Referring Provider Family Medicine; Visit Provider Family Medicine
DX: Z34.82 Encounter for supervision of other normal pregnancy, second trimester (principal); Z3A.19 19 weeks gestation of pregnancy
CPT/HCPCS: 76811

== ENCOUNTER → 2023-12-08 14:57 | Outpatient (CLI) | payer OTHER, SELFPAY ==
[2023-12-08 16:25] LABS: Influenza A - CEPHEID Flu A NEGATIVE (NEGATIVE); Influenza B - CEPHEID Flu B NEGATIVE (NEGATIVE); Respiratory Syncytial Virus Negative (Negative)
[2023-12-08 16:58] LABS: COVID-19 CEPHEID 4-PLEX PCR POSITIVE (Negative)
== END ==
PROVIDERS: PCP Family Medicine; Visit Provider Student in an Organized Health Care Education/Training Program
DX: J02.9 Acute pharyngitis, unspecified (principal); R09.81 Nasal congestion
CPT/HCPCS: 0241U; 87070

== ENCOUNTER 2023-12-08 15:39 | Observation (INO) | payer OTHER, SELFPAY ==
[2023-12-08] VITALS (23 sets, daily range): BP systolic 117–142; BP diastolic 56–84; PULSE 111–129; RESP 20–31; TEMP 36.6–37.7; O2SAT 99–100; BMI 44.9
--- NOTE | 2023-12-08 16:08 | EKG_ITS ---
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
--- NOTE | 2023-12-08 16:08 | DI.RAD.S_ITS ---
PROCEDURE: XR CHEST 1V INDICATIONS: Shortness of breath TECHNIQUE: One view of the chest was acquired. COMPARISON: None. FINDINGS: Surgical changes and devices: None. Lungs and pleura: Low lung volumes. No dense consolidation or pleural effusion Mediastinum: Normal heart size Bones and chest wall: Unremarkable IMPRESSION: Limited single view radiograph without acute abnormality Dictated by: Mehrdad España M.D. on 12/08/2023 at 19:43 Approved by: Mehrdad España M.D. on 12/08/2023 at 19:44
[2023-12-08 16:29] LABS: INR 1.1 (0.9-1.3); Prothrombin Time 12.2 SECONDS (9.4-12.5)
[2023-12-08 16:38] LABS: Alanine Aminotransferase 45 IU/L (<35); Albumin 4.1 g/dL (3.5-5.0); Albumin Globulin Ratio 1.4 (1.0-2.8); Alkaline Phosphatase 58 U/L (38-126); Aspartate Aminotransferase 46 IU/L (14-36); BUN Creatinine Ratio 5.4 (6-22); Bilirubin Total 0.4 mg/dL (0.2-1.3); Blood Urea Nitrogen 3 mg/dL (7-17); Calcium 9.8 mg/dL (8.4-10.2); Carbon Dioxide 21 mmol/L (22-32); Chloride 105 mmol/L (98-107); Estimated Glomerular Filt Rate > 60 mL/min (>60); Glucose 94 mg/dL (70-100); HEMOLYSIS < 15 (0-50); Potassium 3.9 mmol/L (3.4-5.1); Sodium 134 mmol/L (137-145); Total Protein 7.1 g/dL (6.3-8.2)
[2023-12-08 16:39] LABS: Lactate (Lactic Acid) 1.1 mmol/L (0.7-2.1)
[2023-12-08 16:50] LABS: NT-proBNP (BNP-Adult 18+) < 20 pg/mL (<125); Troponin I < 0.012 ng/mL (0.01-0.034)
[2023-12-08 17:12] LABS: Add Manual Diff / Slide Review NO; Basophils Absolute Auto 0 /uL (0-100); Basophils Percent Auto 0.4 % (0-2); Eosinophils Absolute Auto 100 /uL (0-450); Eosinophils Percent Auto 1.2 % (2-4); Hemoglobin 12.5 g/dL (12.0-16.0); Lymphocytes Absolute Auto 1200 /uL (1100-4500); Lymphocytes Percent Auto 12.5 % (25-40); Mean Corpuscular HGB Conc 34.6 % (30-36); Mean Corpuscular Hemoglobin 28.7 PG (26-34); Mean Corpuscular Volume 82.8 fL (80-100); Monocytes Absolute Auto 1000 /uL (0-900); Monocytes Percent Auto 10.1 % (3-14); Neutrophils Absolute Auto 7400 /uL (1500-7000); Neutrophils Percent Auto 75.8 % (50-75); Platelet Count 254 X10^3/uL (150-400); Red Blood Cell Count 4.35 X10^6/uL (4.0-5.2); Red Cell Distribution Width 14.9 % (11.6-14.8); White Blood Cell Count 9.8 X10^3/uL (4.5-11.0)
--- NOTE | 2023-12-08 17:20 | PC.NURSE ---
Pt endorsing feeling crummy the past 2 days and went to see PCP earlier. Pt now feeling worse, dizziness with ambulation and SOB, tachycardia. She has had bouts of nausea and says she has not been drinking fluids as much as she should. Denies chest pain, vaginal bleeding or vaginal discharge. Pt is applying nystatin cream to lucas area for yeast infection and states it is clearing up. at bedside.
[2023-12-08] MEDS: SODIUM CHLORIDE 0.9% 1,000 ML 1000 ML IV ×2 (17:30→20:50)
--- NOTE | 2023-12-08 18:42 | ED_ITS ---
HPI - General Chief complaint: OB/Uterine Contractions Stated complaint: brought by [facility], congestion, tachycardia Time Seen by Provider: 12/08/23 18:41 Source: patient, RN notes reviewed and old records reviewed Limitations: no limitations History of Present Illness HPI Narrative: 32-year-old female , 19 weeks and 5 days estimated gestational age following with Dr. White. Patient presents with a about a week of shortness of breath, feeling run down. She started to have some nasal congestion. Patient had some chest discomfort earlier today she is felt short of breath she denies any new swelling of extremities. She has had some nausea and vomiting throughout her 2nd trimester. She states no acute vomiting today. No issues with diarrhea constipation, no urinary symptoms. Patient has not had any syncope but she is felt lightheaded with exertion. Patient had her anatomy scan today and afterwards felt more congested went to the walk-in clinic and was referred here for elevated heart rate. She states she has on an aspirin daily prevention for preeclampsia, has a history of asthma. Allergy to penicillin ibuprofen. No tobacco, alcohol or recreational drugs. Related Data Home Medications Medication Instructions Recorded Confirmed albuterol sulfate 90 mcg/actuation 2 puff inhalation Q4-6H PRN sob 09/20/23 12/09/23 aerosol inhaler cholecalciferol (vitamin D3) 50 50 mcg PO DAILY 09/20/23 12/08/23 mcg (2,000 unit) capsule vitamin-ferrous sulfate 1 tab PO 09/20/23 12/08/23 27 mg iron-folic acid 0.8 mg tablet pyridoxine (vitamin B6) 50 mg mg PO 12/08/23 12/08/23 tablet Previous Rx's Medication Instructions Recorded aspirin 81 mg tablet,delayed 81 mg PO DAILY #90 tabs 10/20/23 release (Adult Aspirin Regimen) doxylamine succinate 25 mg tablet 12.5 mg (1/2 x 25 mg) PO BEDTIME 11/21/23 (Unisom (doxylamine)) PRN nausea and vomiting #30 tabs nystatin 100,000 unit/gram topical 1 applic topical TID #30 grams 11/28/23 powder nystatin 100,000 unit/gram topical 1 applic topical TID #30 grams 12/04/23 ointment Allergies Allergy/AdvReac Type Severity Reaction Status Date / Time Penicillins Allergy Severe Anaphylaxis Verified 12/08/23 14:55 ibuprofen Allergy Swelling Verified 12/08/23 14:55 of body Review of Systems Review of Systems ROS Unobtainable: All systems reviewed & are unremarkable except as noted in HPI and below Exam Narrative Exam Narrative: GEN: well nourished, well appearing female, alert and oriented x 3, patient appears to be in moderate distress. HEENT: Atraumatic, pupils are equal round reactive to light, extraocular movements are intact, nares are clear, there is no conjunctival pallor. Throat is clear without any exudates, erythema, tonsillar enlargement or uvular deviation HEART: Tachycardic but regular rate and rhythm without murmur, clicks, rubs. Edema bilateral lower extremities. LUNGS:Lungs clear to auscultation, no wheezes, rales, crackles, chest moves symmetrically, no tachypnea accessory muscle use ABD:bowel sounds normal, soft, non-tender, no guarding, rebound, rigidity, no masses noted, no hepatosplenomegaly :No CVA tenderness MSCL: Non-tender, no muscle atrophy, muscles strength 5/5 upper and lower extremities, full range of motion, normal gait NEURO:CN 2-12 intact, sensation normal. Initial Vital Signs Initial Vital Signs: Vital Signs Temperature 97.9 F 12/08/23 15:53 Pulse Rate 125 H 12/08/23 15:53 Respiratory Rate 20 12/08/23 15:53 Blood Pressure 142/84 H 12/08/23 15:53 Pulse Oximetry 100 12/08/23 15:53 Oxygen Delivery Method Room Air 12/08/23 15:53 Course Orders Ordered: Acetaminophen (Acetaminophen 325 Mg Tablet) 650 mg PO Q6H PRN PRN Reason: Fever/Mild Pain (1-3) Albuterol (Albuterol 2.5 Mg/3 Ml Neb (Adult)) 2.5 mg INH Q4H PRN PRN Reason: Wheezing Aspirin (Aspirin Ec 81 Mg Tablet) 81 mg PO DAILY MONA Sodium Chloride (Normal Saline 0.9%) 1,000 mls @ 125 mls/hr IV CONT MONA Last Admin: 12/08/23 23:56 Dose: 125 mls/hr Documented By: AM Naloxone HCl (Naloxone 0.4 Mg/Ml Vial) 0.2 mg IV Q2MIN PRN PRN Reason: Opiate Reversal Vit/Calcium/Iron/Folic Ac ( Vit,Calc/Iron/Folic 1 Tablet) 1 tab PO DAILY MONA Vitamin D (Cholecalciferol (Vitamin D3) 1,000 Unit Tablet) 2,000 unit PO DAILY MONA Discontinued Medications Sodium Chloride (Normal Saline 0.9%) 1,000 mls @ 1,000 mls/hr IV BOLUS ONE Stop: 12/08/23 17:16 Last Infusion: 12/08/23 18:54 Dose: Infused Documented By: Admin: 12/08/23 17:30 Dose: 1,000 mls/hr Documented By: SPF Sodium Chloride (Normal Saline 0.9%) 1,000 mls @ 1,000 mls/hr IV BOLUS ONE Stop: 12/08/23 21:46 Last Infusion: 12/08/23 22:16 Dose: Infused Documented By: Admin: 12/08/23 20:50 Dose: 1,000 mls/hr Documented By: AB Vital Signs Vital signs: Vital Signs - 8 hr 12/08/23 19:30 12/08/23 19:40 12/08/23 19:40 Pulse Rate 117 H 120 H Respiratory Rate 26 H 28 H Blood Pressure 122/73 Pulse Oximetry 100 100 Oxygen Delivery Method Room Air 12/08/23 20:00 12/08/23 20:00 12/08/23 20:25 Pulse Rate 119 H Respiratory Rate 29 H Blood Pressure 126/74 124/74 Pulse Oximetry 100 Oxygen Delivery Method 12/08/23 20:25 12/08/23 20:30 12/08/23 20:40 Pulse Rate 129 H 123 H Respiratory Rate 25 H 23 Blood Pressure 121/69 Pulse Oximetry 100 99 Oxygen Delivery Method 12/08/23 20:40 12/08/23 21:00 12/08/23 21:00 Pulse Rate 125 H 120 H Respiratory Rate 30 H 26 H Blood Pressure 124/73 Pulse Oximetry 100 100 Oxygen Delivery Method 12/08/23 21:20 12/08/23 21:20 Pulse Rate 120 H Respiratory Rate 29 H Blood Pressure 132/71 Pulse Oximetry 100 Oxygen Delivery Method MDM - OB/Uterine Contractions Lab Data 12/08/23 16:15 12/08/23 16:15 Labs: Lab Results 12/08/23 Range/Units 16:15 WBC 9.8 (4.5-11.0) X10^3/uL RBC 4.35 (4.0-5.2) X10^6/uL Hgb 12.5 (12.0-16.0) g/dL Hct 36.0 (36-46) % MCV 82.8 (80-100) fL MCH 28.7 (26-34) PG MCHC 34.6 (30-36) % RDW 14.9 H (11.6-14.8) % Plt Count 254 (150-400) X10^3/uL Neut % (Auto) 75.8 H (50-75) % Lymph % (Auto) 12.5 L (25-40) % [place] % (Auto) 10.1 (3-14) % Eos % (Auto) 1.2 L (2-4) % Baso % (Auto) 0.4 (0-2) % Neut # (Auto) 7400 H (6123-3112) /uL Lymph # (Auto) 1200 (7429-3564) /uL [place] # (Auto) 1000 H (0-900) /uL Eos # (Auto) 100 (0-450) /uL Baso # (Auto) 0 (0-100) /uL PT 12.2 (9.4-12.5) SECONDS INR 1.1 (0.9-1.3) Sodium 134 L (137-145) mmol/L Potassium 3.9 (3.4-5.1) mmol/L Chloride 105 (98-107) mmol/L Carbon Dioxide 21 L (22-32) mmol/L BUN 3 L (7-17) mg/dL Creatinine 0.56 (0.52-1.04) mg/dL Estimated GFR > 60 (>60) mL/min BUN/Creatinine Ratio 5.4 L (6-22) Glucose 94 (70-100) mg/dL Lactate 1.1 (0.7-2.1) mmol/L Calcium 9.8 (8.4-10.2) mg/dL Total Bilirubin 0.4 (0.2-1.3) mg/dL AST 46 H (14-36) IU/L ALT 45 H (<35) IU/L Alkaline Phosphatase 58 (38-126) U/L Troponin I < 0.012 (0.01-0.034) ng/mL NT-Pro-B Natriuret Pep < 20 (<125) pg/mL Total Protein 7.1 (6.3-8.2) g/dL Albumin 4.1 (3.5-5.0) g/dL Globulin 3.0 (1.7-4.1) g/dL Albumin/Globulin Ratio 1.4 (1.0-2.8) Urine Dip Bedside Urine Glucose Negative Bedside Urine Bilirubin - Negative Bedside Urine Ketone - Negative Urine Specific [place] 1.010 Bedside Urine Occult Blood +/- Bedside Urine pH 7.5 Bedside Urine Protein - Negative Bedside Urine Urobilinogen - Negative Bedside Urine Nitrite - Negative Bedside Urine Leukocytes - Negative Esterase Imaging Data Chest x-ray: Radiologist's Impression: Roz Camp??32??F??1990 ? Allergy/Adv: Penicillins, ibuprofen Close Chest X-Ray (Signed) Mehrdad España - 12/08/23 Ultrasound (Signed) Maximus Chow - 12/08/23 Obstetrics Ultrasound (Signed) Aram Stockton - 11/09/[address] (Signed) [address] - 03/02/23 [address]?[place] [address] XRay Report Signed Patient: Roz Camp MR#: [id number] : 1990 Acct:[id number] Age/Sex: 32 / Date of Service: 12/08/23 Loc: ED Accession Number: [id number] Procedure: XR chest 1V Ordering Provider: Monica Lujan D.O. PROCEDURE: XR CHEST 1V INDICATIONS: Shortness of breath TECHNIQUE: One view of the chest was acquired. COMPARISON: None. FINDINGS: Surgical changes and devices: None. Lungs and pleura: Low lung volumes. No dense consolidation or pleural effusion Mediastinum: Normal heart size Bones and chest wall: Unremarkable IMPRESSION: Limited single view radiograph without acute abnormality Dictated by: Mehrdad España M.D. on 12/08/2023 at 19:43 Approved by: Mehrdad España M.D. on 12/08/2023 at 19:44 ECG Data Attestation: I personally reviewed and interpreted this ECG as follows: Prior ECG tracings: not available for review Interpretation: Sinus tachycardia rate of 123 OH 132 QRS is 74 QTC of 418. No priors for comparison. MDM Narrative Medical decision making narrative: 32-year-old female at 19 weeks and 5 days who recent developed upper respiratory symptoms, lightheadedness and shortness of breath patient has been persistently tachy did spike a L of fluids. Does not have any hypoxia even with ambulation but heart rate goes up to 150s. Was found to be COVID positive. CBC shows white count of 9.8 hemoglobin of 12.5 platelets of 254. INR is 1.1 sodium is 134 potassium 3.9 chloride 105 CO2 21 BUN 3 creatinine 0.56 glucose of 94 lactate 1.1, calcium is 9.8 total bili is 0.4 AST is 46 ALT is 45 alk-phos 58, troponins less than 0.012, BNP is less than 20 Point of care urine positive for blood Patient is positive for COVID. EKG shows sinus tach S1, patient has not RSR in 3. No acute ST elevation depression. No priors for comparison. Chest x-ray is normal no cardiomegaly no pleural effusions. Patient received a L of fluid continues to be persistently tachycardic. Notes quite a bit of exertional dyspnea. Started in the last weeks and she is developed COVID infection. Chest x-ray does not show any cardiomegaly, no pleural effusions. Spoke with Dr. Garner on-call for OBGYN about possibly keeping for observation she would be happy to consult agrees with plan for fluids overnight echo in the a.m. if continuing to improve potential discharge but asked for admission to medicine. Spoke Dr. Heller, accepts for observation for COVID infection persistent tachycardia despite fluid resuscitation plan for echo in the a.m.. Discussed possibility of pulmonary embolism patient does not have other risk factor she was she was obese but no other known risk factors. She has on an aspirin daily at this time. Does not appear to have a cardiac arrhythmia such as atrial flutter is heart rate is variable but not AFib. Reviewed all labs and workup thus far. Discharge Plan Departure Patient Disposition: Admitted as Observation Clinical Impression: COVID-19 virus infection, Tachycardia, Admit Date/Time: 12/08/23 21:29 Admit Provider: Lady Heller
--- NOTE | 2023-12-08 22:17 | PC.NURSE ---
Pt states she has had no change in her condition. Pt continues to be SOB, increases with ambulation. Pt given half turkey sandwhich and apple juice around 2114. Report called to floor nurse Jeremiah at 1328
--- NOTE | 2023-12-08 23:42 | DI.ECHO.S_ITS ---
[facility] +---------+ [facility] : : [address] : : [place] : : [id number] : : Phone: [phone] Echocardiogram Report + + :Name: WARREN MCGINNIS Study Date: 12/09/2023 Height: 60 in : :Hospital ReadingLocation: Weight: 230 lb : : Gender: Female BSA: 2.0 m2 : :: 1990 Age: 32 yrs BP: 106/68 mmHg: :Reason For Study: TACHYCARDIA : :Ordering Physician: MARSHALL, : :ENRIQUETA Performed By: Tram Bustamante : :Referring: ENRIQUETA OLIVARES : + + Interpretation Summary 1) Normal left ventricular size, wall motion, and systolic function (EF 60- 65%). 2) Normal right ventricular size and function. 3) No significant valvular abnormalities. 4) No prior Echo available for comparison. Procedure: A two-dimensional transthoracic echocardiogram with color flow and Doppler was performed. The study quality was technically adequate. There is no prior echocardiogram noted for this patient. The patient was in sinus rhythm with heart rates between 93-103 bpm during the exam. Left Ventricle: The left ventricle is normal in size. Left ventricular wall thickness is normal. The ejection fraction is estimated to be 60-65%. Left ventricular systolic function appears normal without focal wall motion abnormalities. Right Ventricle: The right ventricle is normal in size and function. Atria: The left atrial size is normal. Right atrial size is normal. There is no Doppler evidence for an interatrial shunt. Mitral Valve: The mitral valve is normal in structure and function. There is trace mitral regurgitation. Aortic Valve: The aortic valve is trileaflet. The aortic valve opens well. There is no aortic valve stenosis. No aortic regurgitation is present. Tricuspid Valve: The tricuspid valve is normal in structure and function. There is trace tricuspid regurgitation. Pulmonic Valve: The pulmonic valve leaflets are thin and pliable; valve motion is normal. There is trace pulmonic regurgitation. Great Vessels: The aortic root is normal size. The dimensions of the ascending aorta are normal. The inferior vena cava was not well visualized. Pericardium/ Pleura There is no pericardial effusion. There is no pleural effusion. MMode/2D Measurements & Calculations LVIDd: 4.5 cm LVOT diam: 2.0 cm LVIDs: 3.2 cm Ao root diam: 3.0 cm FS: 30.6 % asc Aorta Diam: 3.0 cm EPSS: 1.2 cm Ao Arch Diam (Prox Trans): 2.5 cm IVSd: 1.1 cm LVPWd: 0.89 cm LV kearney. diameter/BSA (cm/m^2): 2.3 LV sys. diameter/BSA (cm/m^2): 1.6 LA A2 area: 19.0 cm2 RA long axis: 4.2 cm LA A4 area: 15.2 cm2 RA area: 11.6 cm2 LA length (vol): 5.1 cm RA vol: 27.2 ml LA vol: 48.1 ml RA : 13.7 ml/m2 LA vol index: 24.3 ml/m2 RVD1 (basal): 2.9 cm TAPSE: 1.7 cm Doppler Measurements & Calculations Ao V2 max: 175.6 cm/sec LVOT Max Donna: 101.2 cm/sec Ao V2 mean: 122.9 cm/sec LV V1 max P.1 mmHg Ao max P.3 mmHg LV V1 VTI: 19.3 cm Ao mean P.7 mmHg KYLE(I,D): 2.2 cm2 Ao V2 VTI: 27.0 cm KYLE(V,D): 1.8 cm2 sev ratio: 0.71 KYLE indexed to BSA (cm^2/m^2): 1.1 MV E max donna: 82.4 cm/sec PA V2 max: 110.6 cm/sec MV A max donna: 77.5 cm/sec PA V2 mean: 79.8 cm/sec MV E/A: 1.1 PA mean P.8 mmHg Med Peak E' Donna: 9.8 cm/sec PA pr(Accel): 36.2 mmHg E/E' med: 8.4 Lat Peak E' Donna: 11.1 cm/sec E/E' lat: 7.4 E/e' average: 7.9 MV dec time: 0.15 sec SV(LVOT): 59.2 ml Reading Physician:01:38 PM
[2023-12-08] MEDS: SODIUM CHLORIDE 0.9% 1,000 ML 125 ML IV (23:56)
[2023-12-09 03:42] VITALS: BP 106/68; PULSE 117; RESP 18; TEMP 36.9; O2SAT 99
[2023-12-09 07:00] VITALS: BP 120/72; PULSE 108; RESP 22; TEMP 36.4; O2SAT 98
[2023-12-09] MEDS: PRENATAL VIT,CALC/IRON/FOLIC 1 TABLET 1 TAB PO (09:47)
[2023-12-09] MEDS: CHOLECALCIFEROL (VITAMIN D3) 1,000 UNIT TABLET 2000 UNIT PO (09:48)
[2023-12-09] MEDS: ASPIRIN EC 81 MG TABLET PO (09:48)
[2023-12-09 11:00] VITALS: BP 113/77; PULSE 97; RESP 21; TEMP 36.1; O2SAT 99
--- NOTE | 2023-12-09 11:14 | CM.DANOTE ---
Initial DCP Assessment Note Pt is a 32 yo female, resident of [place], COVID+, 19 wks , admitted for further work up and close monitoring. PCP: Jeanie Apodaca Payer: Iva Dickson Reviewed chart, pt discussed with Dr Heller this morning. Patient remains tachy this morning, echo pending, fluids running. Patient is expected to discharge today or tomorrow, home with family. No barriers identified at this time to patient's safe discharge home w/family to assist; close outpatient f/u recommended. CM team will plan to follow clinical course closely in case any DC needs or concerns arise. JULIA Reeves Discharge Planning/Care Management CM Discharge Assessment Start: 12/09/23 11:09 Freq: Status: Active Protocol: Document 12/09/23 11:09 ZAYRA (Rec: 12/09/23 11:14 ZAYRA [id number]) Discharge Planning Assessment Assigned Quality Assurance Qa Lab Technician JULIA Casillas DPOA/Assigned Designee Name mom Iliana Nguyen and camilo only Contact Information spouse [phone] mom Advance Directives? No History Provided By Patient,Medical Record Prior Living Arrangements House Household Members spouse,children Type of transporation used prior to Drives own vehicle admit Independent with ADL's Yes Is patient alert and oriented? Yes Barriers to Discharge No Comment Home w/family Discharge Plan Home Transportation Arrangement Family Referrals Initiated None needed
--- NOTE | 2023-12-09 11:37 | P.HP_ITS ---
History of Present Illness History of Present Illness Date Patient Seen: 12/09/23 Time Patient Seen: 09:15 Chief complaint: brought by [facility], congestion, tachycardia Narrative: Pt is a 32yo at 19w6d here due to congestion and palpitations. The pt reports that starting 12/06 she developed mild nasal congestion and postnasal drip. This persisted into yesterday. She came in for her anatomy u/s yesterday and afterwards felt dizzy with palpitations. The pt also states that she was feeling moderately SOB, but felt this was just due to being . Due to the persistence of the the palpitations and lightheadedness, she came to the [facility] for evaluation. The pt denies any chest pain beyond the palpitations. She has felt feverish with some cold sweats. She denies any lower extremity edema. She has had some nausea/vomiting throughout her thus far, but states this is unchanged. The pt denies any recent travel or prolonged sitting. The pt presented to the [facility] where her vitals were stable but she was tachycardic to the 120s and 150s with ambulation. She was then sent to the ED for evaluation. In the ED, the pt was again found to be persistently tachycardic. She did test positive for COVID. Other lab work and CXR was reassuring. She received 2L of IVF bolus. The pt this morning reports that her symptoms are improved. She no longer feels lightheaded/dizzy at all. Her SOB is minimally improved as well. She continues to feel like her heart is racing with any ambulation. [facility] Medical History Uterine polyp Surgical History [place] teeth extracted History of gynecologic surgery (~02/2023) Family History Mother Lupus Early onset Alzheimer's dementia Migraine Brain mass Preeclampsia Brother Autism Cardiomegaly Developmental disability Sickle-cell trait Sister Heart murmur Preeclampsia Grandmother Hypertension Pre-diabetes Breast cancer Alzheimer's dementia Aunt Osteoporosis Aunt ALS (amyotrophic lateral sclerosis) Family/Other Uterine cancer Family/Other Autism Father Mental health disorder Social History marital status: number of children: 1 household members: spouse and children lives independently: Yes caregiver/support person: Yes housing: house pets and animals: Yes (dogs) education level: college occupational status: unemployed current occupational exposures/hazards: No veda/rastafari: [employer] special veda needs: No travel history: over 6 months ago seatbelt use: always working smoke detector in home: Yes fire extinguisher in home: No carbon monox detector in home: Yes firearms in home: No do you feel safe at home: Yes Smoking Status: Never smoker second hand exposure: No alcohol intake: former substance use type: does not use during the past year weight has: other well-balanced diet: daily or most days daily servings fruits/ve or more times/day caffeine: Yes (minimal in recent history) Type(s) of exercise: walking frequency: 5-6 times per week Meds Home Medications and Allergies Home Medications Medication Instructions Recorded Confirmed Type albuterol sulfate 90 mcg/actuation 2 puff inhalation Q4-6H PRN sob 09/20/23 12/09/23 History aerosol inhaler cholecalciferol (vitamin D3) 50 50 mcg PO DAILY 09/20/23 12/08/23 History mcg (2,000 unit) capsule vitamin-ferrous sulfate 1 tab PO 09/20/23 12/08/23 History 27 mg iron-folic acid 0.8 mg tablet aspirin 81 mg tablet,delayed 81 mg PO DAILY #90 tabs 10/20/23 12/09/23 Rx release (Adult Aspirin Regimen) doxylamine succinate 25 mg tablet 12.5 mg (1/2 x 25 mg) PO BEDTIME 11/21/23 12/09/23 Rx (Unisom (doxylamine)) PRN nausea and vomiting #30 tabs nystatin 100,000 unit/gram topical 1 applic topical TID #30 grams 11/28/23 12/08/23 Rx powder nystatin 100,000 unit/gram topical 1 applic topical TID #30 grams 12/04/23 12/09/23 Rx ointment pyridoxine (vitamin B6) 50 mg mg PO 12/08/23 12/08/23 History tablet Allergies Allergy/AdvReac Type Severity Reaction Status Date / Time Penicillins Allergy Severe Anaphylaxis Verified 12/08/23 14:55 ibuprofen Allergy Swelling Verified 12/08/23 14:55 of body Exam Vital Signs (past 8 hours): - 12/09/23 03:42 12/09/23 07:00 12/09/23 07:30 Temperature 98.4 F 97.5 F L Pulse Rate 117 H 108 H Respiratory Rate 18 22 Blood Pressure 106/68 120/72 Pulse Oximetry 99 98 Oxygen Delivery Method Room Air Oxygen Flow Rate 0 0 Oxygen Delivery Method Room Air Oxygen Flow Rate 0 Narrative Exam Narrative: Gen: NAD, sitting comfortably in bed, appears well HEENT: normocephalic, atraumatic, sclera clear Neck: no LAD CV: regular rhythm, tachycardic, no murmurs Resp: clear to auscultation bilaterally Abd: soft, nontender, nondistended, gravid Ext: no edema Neuro: no gross deficits Objective Labs 12/08/23 16:15 12/08/23 16:15 Labs: Laboratory Results - last 24 hr 12/08/23 16:15 WBC 9.8 RBC 4.35 Hgb 12.5 Hct 36.0 MCV 82.8 MCH 28.7 MCHC 34.6 RDW 14.9 H Plt Count 254 Neut % (Auto) 75.8 H Lymph % (Auto) 12.5 L [place] % (Auto) 10.1 Eos % (Auto) 1.2 L Baso % (Auto) 0.4 Neut # (Auto) 7400 H Lymph # (Auto) 1200 [place] # (Auto) 1000 H Eos # (Auto) 100 Baso # (Auto) 0 PT 12.2 INR 1.1 Sodium 134 L Potassium 3.9 Chloride 105 Carbon Dioxide 21 L BUN 3 L Creatinine 0.56 Estimated GFR > 60 BUN/Creatinine Ratio 5.4 L Glucose 94 Lactate 1.1 Calcium 9.8 Total Bilirubin 0.4 AST 46 H ALT 45 H Alkaline Phosphatase 58 Troponin I < 0.012 NT-Pro-B Natriuret Pep < 20 Total Protein 7.1 Albumin 4.1 Globulin 3.0 Albumin/Globulin Ratio 1.4 Assessment & Plan Assessment & Plan narrative: Pt is a 32yo at 19w6d here due to significant persistent tachycardia. The pt remains tachycardic despite 2L IVF in the ED and mIVF overnight. Pt did test positive for COVID, potentially explaining symptoms. No evidence of pneumonia on CXR, U/A without signs of UTI. Pt at higher risk for PE with COVID, obesity, and however no hypoxia, LE swelling, and pt is already on prophylactic aspirin as well. 1) Tachycardia: HR has improved some this morning - Echocardiogram to be completed this morning - Continue mIVF, encourage hydration - Will not pursue VQ scan or CT PE at this time 2) COVID: Pt without significant symptoms beyond tachycardia. - Supportive care - Will not give Paxlovid at this time 3) : Anatomy u/s completed yesterday reassuring other than LGA fetus - Continue vitamin - Consider early glucola as an outpatient FEN: General diet Code: Full DVT ppx: Aspirin as above, SCDs Dispo: Pending results of Echo. Plan for d/c later today assuming normal. Time-Based Coding :: [TOTAL MINUTES] spent with patient and on the chart (including review of chart, obtaining history, exam, reviewing outside data, placing orders, documenting exam and treatment plan, and counseling patient) on [DATE].
[2023-12-09 15:00] VITALS: BP 125/80; PULSE 95; RESP 24; TEMP 36.4; O2SAT 100
--- NOTE | 2023-12-09 18:32 | PC.NURSE ---
Discharge: Pt feels ready to d/c to home. She still is tachy but not as high as she has been. Has been down to the 90's now, although still over 100's when she is up oob. She reports she feels better and isn't dizzy. Echo completed and Dr. Heller called. Dr. Heller gave pt d/c instructions. Discharge packet given and reviewed. Questions answered. Pt d/c to home via auto with spouse.
== END 2023-12-09 17:15 | disposition home or self-care (01) ==
LOC: ED 18:41 → AC 21:30
PROVIDERS: Emergency Medicine; Admitting Provider Family Medicine; Emergency Provider Emergency Medicine; PCP Family Medicine; Referring Provider Family Medicine; Visit Provider Family Medicine
DX: U07.1 COVID-19 (principal); R00.0 Tachycardia, unspecified; Z33.1 Pregnant state, incidental; Z3A.19 19 weeks gestation of pregnancy
CPT/HCPCS: 0241U; 36415; 71045; 76811; 80053; 81003; 83605; 83880; 84484; 85025; 85610; 87070; 93005; 93306; 96360; 96361; 99284; G0378

== ENCOUNTER → 2024-01-08 13:35 | Outpatient (CLI) | payer OTHER, SELFPAY ==
[2023-12-08 21:51] VITALS: BMI 44.9
== END ==
PROVIDERS: Visit Provider Physician Assistant Surgical
DX: N94.89 Other specified conditions associated with female genital organs and menstrual cycle (principal)
CPT/HCPCS: 87210

== ENCOUNTER → 2024-01-22 09:43 | Outpatient (CLI) | payer OTHER, SELFPAY ==
[2023-12-08 21:51] VITALS: BMI 44.9
[2024-01-22 12:10] LABS: GTT (PREG) 1 Hour PP 50gm Dose 145 mg/dL (76-139)
== END ==
PROVIDERS: Referring Provider Family Medicine; Visit Provider Family Medicine
DX: Z34.90 Encounter for supervision of normal pregnancy, unspecified, unspecified trimester (principal); R00.0 Tachycardia, unspecified
CPT/HCPCS: 36415; 82950

== ENCOUNTER → 2024-01-29 09:43 | Outpatient (CLI) | payer OTHER, SELFPAY ==
[2023-12-08 21:51] VITALS: BMI 44.9
== END ==
PROVIDERS: Referring Provider Family Medicine; Visit Provider Family Medicine
DX: R00.0 Tachycardia, unspecified (principal)
CPT/HCPCS: 93246; 93248

== ENCOUNTER → 2024-01-31 07:46 | Outpatient (CLI) | payer OTHER, SELFPAY ==
[2023-12-08 21:51] VITALS: BMI 44.9
[2024-01-31 09:34] LABS: Glucose Fasting Gestational 92 mg/dL (76-95)
[2024-01-31 10:32] LABS: Glucose Tol Interp,Gestational INTERPRETATION
[2024-01-31 10:39] LABS: Glucose 1 Hour Gest 138 mg/dL (76-180)
[2024-01-31 11:29] LABS: Glucose 3 Hour Gest 124 mg/dL (76-140)
[2024-01-31 12:11] LABS: Glucose 2 Hour Gest 135 mg/dL (76-155)
== END ==
PROVIDERS: Referring Provider Family Medicine; Visit Provider Family Medicine
DX: O99.810 Abnormal glucose complicating pregnancy (principal); Z3A.26 26 weeks gestation of pregnancy
CPT/HCPCS: 82951; 82952

== ENCOUNTER → 2024-02-15 10:48 | Outpatient (CLI) | payer OTHER, SELFPAY ==
[2023-12-08 21:51] VITALS: BMI 44.9
== END ==
PROVIDERS: Visit Provider Family Medicine
DX: N89.8 Other specified noninflammatory disorders of vagina (principal)
CPT/HCPCS: 87210

== ENCOUNTER 2024-02-23 12:43 | Emergency (ER) | payer OTHER, SELFPAY ==
[2023-12-08 21:51] VITALS: BMI 44.9
[2024-02-23 12:47] VITALS: BP 140/79; PULSE 104; RESP 18; TEMP 37.1; O2SAT 99; BMI 44.9
--- NOTE | 2024-02-23 13:53 | ED_ITS ---
HPI - Animal Bite <Jaye Noe PA-C - Last Filed: 02/23/24 14:41> General Chief Complaint: Animal Bite Stated Complaint: dog bite infection Time Seen by Provider: 02/23/24 13:53 Source: patient Mode of arrival: Ambulatory History of Present Illness HPI narrative: Ms. Camp is a pleasant 33-year-old female who is currently 30 weeks that presents to the emergency department for a dog bite to her right index finger that occurred yesterday. Patient reports she was attempting to feed her small, 15 lb, dog turkey when accidentally bit her index finger. Today she has 4 small puncture wounds on the distal right index finger, no bleeding. Her Tdap is up-to-date. She does have anaphylaxis allergy to penicillins. She denies any pain with range of motion of her finger, nail injury, any other concerns. Her pet dog is up-to-date on all his vaccines including rabies vaccines. Related Data Home Medications Medication Instructions Recorded Confirmed albuterol sulfate 90 mcg/actuation 2 puff inhalation Q4-6H PRN sob 09/20/23 02/15/24 aerosol inhaler cholecalciferol (vitamin D3) 50 50 mcg PO DAILY 09/20/23 02/15/24 mcg (2,000 unit) capsule vitamin-ferrous sulfate 1 tab PO 09/20/23 02/15/24 27 mg iron-folic acid 0.8 mg tablet pyridoxine (vitamin B6) 50 mg mg PO 12/08/23 02/15/24 tablet Previous Rx's Medication Instructions Recorded aspirin 81 mg tablet,delayed 81 mg PO DAILY #90 tabs 10/20/23 release (Adult Aspirin Regimen) doxylamine succinate 25 mg tablet 12.5 mg (1/2 x 25 mg) PO BEDTIME 11/21/23 (Unisom (doxylamine)) PRN nausea and vomiting #30 tabs nystatin 100,000 unit/gram topical 1 applic topical TID #30 grams 01/12/24 ointment Breast pump([employer] w/ #1 ea 01/18/24 supplies) azithromycin 250 mg tablet 250 mg PO DAILY 4 days #4 tabs 02/23/24 Allergies Allergy/AdvReac Type Severity Reaction Status Date / Time Penicillins Allergy Severe Anaphylaxis Verified 02/15/24 10:20 ibuprofen Allergy Swelling Verified 02/15/24 10:20 of body Review of Systems <Jaye Noe PA-C - Last Filed: 02/23/24 14:41> Review of Systems ROS Unobtainable: All systems reviewed & are unremarkable except as noted in HPI and below Patient History <Jaye Noe PA-C - Last Filed: 02/23/24 14:41> Medical History Uterine polyp Surgical History [place] teeth extracted History of gynecologic surgery (~02/2023) Family History Mother Lupus Early onset Alzheimer's dementia Migraine Brain mass Preeclampsia Brother Autism Cardiomegaly Developmental disability Sickle-cell trait Sister Heart murmur Preeclampsia Grandmother Hypertension Pre-diabetes Breast cancer Alzheimer's dementia Aunt Osteoporosis Aunt ALS (amyotrophic lateral sclerosis) Family/Other Uterine cancer Family/Other Autism Father Mental health disorder Social History marital status: number of children: 1 household members: spouse and children lives independently: Yes caregiver/support person: Yes housing: house pets and animals: Yes (dogs) education level: college occupational status: unemployed current occupational exposures/hazards: No veda/muslim: Lutheran special veda needs: No travel history: over 6 months ago seatbelt use: always working smoke detector in home: Yes fire extinguisher in home: No carbon monox detector in home: Yes firearms in home: No do you feel safe at home: Yes Smoking Status: Never smoker second hand exposure: No alcohol intake: former substance use type: does not use during the past year weight has: other well-balanced diet: daily or most days daily servings fruits/ve or more times/day caffeine: Yes (minimal in recent history) Type(s) of exercise: walking frequency: 5-6 times per week Smoking Status: Never smoker Substance Use Type: does not use Exam <Jaye Noe PA-C - Last Filed: 02/23/24 14:41> Narrative Exam Narrative: GENERAL: 33 year old patient appears stated age. Well-developed patient, in no acute distress. HEAD: Atraumatic. Normocephalic. EYES: Extraocular motions intact. No scleral icterus. No injection or drainage. ENT: Nose without bleeding, purulent drainage. NECK: Trachea midline. Cervical ROM intact. CARDIOVASCULAR: Regular rate RESPIRATORY: ?Nonlabored respirations. ?Speaking in clear, full sentences. ? GASTROINTESTINAL: Gravid uterus EXTREMITIES: Right index finger with 4 superficial abrasions/puncture wounds on distal tip. No nail injury. No bleeding or drainage. Full ROM at DIP, PIP, MCP. Stong radial pulse and brisk cap refill. NEURO: AOx3. ?Clear speech. ?Moves all 4 extremities appropriately. Initial Vital Signs Initial Vital Signs: Vital Signs Temperature 98.7 F 02/23/24 12:47 Pulse Rate 104 H 02/23/24 12:47 Respiratory Rate 18 02/23/24 12:47 Blood Pressure 140/79 02/23/24 12:47 Pulse Oximetry 99 02/23/24 12:47 Oxygen Delivery Method Room Air 02/23/24 12:47 <Jordi Cotton MD - Last Filed: 02/23/24 20:33> Initial Vital Signs Initial Vital Signs: Vital Signs Temperature 98.7 F 02/23/24 12:47 Pulse Rate 104 H 02/23/24 12:47 Respiratory Rate 18 02/23/24 12:47 Blood Pressure 140/79 02/23/24 12:47 Pulse Oximetry 99 02/23/24 12:47 Oxygen Delivery Method Room Air 02/23/24 12:47 Course <Jaye Noe PA-C - Last Filed: 02/23/24 14:41> Orders Ordered: Discontinued Medications Azithromycin (Azithromycin 250 Mg Tablet) 500 mg PO NOW ONE Stop: 02/23/24 14:06 Last Admin: 02/23/24 14:37 Dose: 500 mg Documented By: ALEX Bacitracin (Bacitracin Oint 0.9 Gm Pckt) 1 applic TOP NOW ONE Stop: 02/23/24 14:06 Last Admin: 02/23/24 14:37 Dose: 1 applic Documented By: ALEX Vital Signs Vital signs: Vital Signs - 8 hr 02/23/24 12:47 02/23/24 14:42 Temperature 98.7 F 98.6 F Pulse Rate 104 H 99 H Respiratory Rate 18 20 Blood Pressure 140/79 138/66 Pulse Oximetry 99 99 Oxygen Delivery Method Room Air Room Air <Jordi Cotton MD - Last Filed: 02/23/24 20:33> Orders Ordered: Discontinued Medications Azithromycin (Azithromycin 250 Mg Tablet) 500 mg PO NOW ONE Stop: 02/23/24 14:06 Last Admin: 02/23/24 14:37 Dose: 500 mg Documented By: ALEX Bacitracin (Bacitracin Oint 0.9 Gm Pckt) 1 applic TOP NOW ONE Stop: 02/23/24 14:06 Last Admin: 02/23/24 14:37 Dose: 1 applic Documented By: ALEX Vital Signs Vital signs: Vital Signs - 8 hr 02/23/24 12:47 02/23/24 14:42 Temperature 98.7 F 98.6 F Pulse Rate 104 H 99 H Respiratory Rate 18 20 Blood Pressure 140/79 138/66 Pulse Oximetry 99 99 Oxygen Delivery Method Room Air Room Air MDM - Animal Bite <Jaye Noe PA-C - Last Filed: 02/23/24 14:41> [facility] Narrative Medical decision making narrative: 33-year-old currently female presents to the emergency department for a dog bite her right index finger that occurred last night. Differential diagnosis includes but is not limited to puncture wound, abrasion, laceration, crush injury, infection, etc. On exam patient is in no acute distress, nontoxic appearing. Very superficial small puncture wounds on distal right index finger. Full isolated range of motion and neurovascularly intact. Discussed antibiotic choice with pharmacy given patient's history anaphylaxis to penicillins and currently 30 weeks . Based on conversation with pharmacist and EMRA, we will treat with 500 mg azithromycin today followed by 250 mg p.o. once daily for 4 days. Patient is aware that this is not our 1st line choice and we extensively discussed proper wound care and signs and symptoms of infection to return to the ER for. Bacitracin and dressing applied to patient's wound in the ER after cleansing of the area. Patient verbalized understanding of all information and is stable for discharge. Discharge Plan Departure Patient Disposition: Home Clinical Impression: Open wound of right index finger due to dog bite Instructions: DI for Dog Bite Activity Restrictions/Additional Instructions: Today we are treating you for a dog bite to the right index finger. You were given the 1st dose of antibiotic in the ER, please take the 2nd dose tomorrow, 02/24/2024, and complete the full 4 day course. Antibiotics were sent to the [facility] in [place]. Please keep the right index finger clean, covered with antibiotic ointment and a bandage or other dressing. Avoid soaking the wound in any water until it is completely healed. Return to the ER if you develop any signs or symptoms of worsening infection such as fevers, redness spreading the right finger or hand, pus draining from the wound, or any other concerns. Please follow up with your primary care doctor within the next 2-3 days for ER follow-up and wound check. (If you do not have a PCP you can call [phone]. ?to schedule an appointment with an [facility] Primary Care Provider) IF YOU DEVELOP ANY NEW OR WORSENING SYMPTOMS, RETURN TO THE ER! Please read the attached instructions, they highlight more specific treatments and interventions for you at home. Thank you for letting me participate in your care, Jaye Noe PA-C Prescriptions: New azithromycin 250 mg tablet 250 mg PO DAILY 4 Days Qty: 4 0RF Rx Instructions: Start on Monday02/24/24 No Action aspirin [Adult Aspirin Regimen] 81 mg tablet,delayed release (DR/EC) 81 mg PO DAILY Qty: 90 3RF pyridoxine (vitamin B6) 50 mg tablet PO (DME) Breast pump([employer] w/ supplies) See Rx Instructions .ROUTE .MEDSUPPLY Qty: 1 0RF Rx Instructions: As directed Unisom (doxylamine) 25 mg tablet 12.5 mg PO BEDTIME PRN (Reason: nausea and vomiting) Qty: 30 0RF nystatin 100,000 unit/gram ointment 1 applic topical TID Qty: 30 0RF vit-ferrous sulfat-FA 27 mg iron- 0.8 mg tablet 1 tab PO cholecalciferol (vitamin D3) 50 mcg (2,000 unit) capsule 50 mcg PO DAILY albuterol sulfate 90 mcg/actuation HFA aerosol inhaler 2 puff inhalation Q4-6H PRN (Reason: sob) Referrals: [facility] [Primary Care Provider] - Stand Alone Forms: Patient Portal/API/Survey ED Sign-out <Jordi Cotton MD - Last Filed: 02/23/24 20:33> Cosign ED Attending Cossimonaature Attestation: I was immediately available in the department for consultation. This documentation has been reviewed and I agree with assessment and plan. Supervised by Jordi Cotton MD
[2024-02-23] MEDS: BACITRACIN OINT 0.9 GM PCKT 1 APPLIC TOP (14:37)
[2024-02-23] MEDS: AZITHROMYCIN 250 MG TABLET 500 MG PO (14:37)
[2024-02-23 14:42] VITALS: BP 138/66; PULSE 99; RESP 20; TEMP 37; O2SAT 99
== END 2024-02-23 14:47 | disposition home or self-care (01) ==
PROVIDERS: Emergency Provider Physician Assistant
DX: O26.893 Other specified pregnancy related conditions, third trimester (principal); S61.250A Open bite of right index finger without damage to nail, initial encounter; Z3A.30 30 weeks gestation of pregnancy
CPT/HCPCS: 99283

== ENCOUNTER 2024-03-31 23:29 | Observation (INO) | payer OTHER, SELFPAY ==
[2023-12-08 21:51] VITALS: BMI 44.9
== END 2024-04-01 00:39 | disposition home or self-care (01) ==
LOC: LABOR 23:31
PROVIDERS: Admitting Provider Obstetrics & Gynecology; Referring Provider Obstetrics & Gynecology; Visit Provider Obstetrics & Gynecology
DX: O36.8130 Decreased fetal movements, third trimester, not applicable or unspecified (principal); O99.213 Obesity complicating pregnancy, third trimester; E66.9 Obesity, unspecified; W06.XXXA Fall from bed, initial encounter; Z3A.36 36 weeks gestation of pregnancy
CPT/HCPCS: 59025; G0378; G0379

== ENCOUNTER → 2024-04-02 16:18 | Outpatient (CLI) | payer OTHER, SELFPAY ==
[2023-12-08 21:51] VITALS: BMI 44.9
--- NOTE | 2024-04-02 16:21 | DI.US.S_ITS ---
PROCEDURE: US OB LIMITED INDICATIONS: LGA OUTSIDE/PRIOR DATING DATA: Last menstrual period (LMP): 07/23/2023. LMP-based estimated date of delivery (KATY): 04/28/2024 First dating scan (date and location): Unknown. Estimated date of delivery (KATY) from first dating scan: On known. The calculations are made using the clinical KATY of 04/28/2024. TECHNIQUE: Real-time scanning was performed of the fetus, with image documentation. COMPARISON: [facility], OB LIMITED, 11/09/2023, 12:40. [facility], OB >= 14 WEEKS FETUS, 12/08/2023, 13:15. FINDINGS: A single living intrauterine gestation is present. Presentation: Vertex. Placenta: Placental position is posterior, without previa. Amniotic fluid index: 18.8 cm, normal range is 5-24 cm. Single deepest vertical pocket is 5.5 cm. heart rate: 139 beats per minute. Maternal cervical canal: Not assessed BPD: 8.6 cm 34 weeks 4 days HC: 32.1 cm 36 weeks 1 day AC: 36.1 cm 40 weeks 0 days FL: 7.1 cm 36 weeks 4 days Clinically estimated gestational age: 36 weeks 2 days Estimated gestational age from today's scan: 36 weeks 6 days Estimated weight 3393 g, 92nd percentile.. IMPRESSION: Single live intrauterine with gestational age of 36 weeks 6 days. EMILE is within normal limits. Dictated by: Ruthie Vela M.D. on 04/03/2024 at 22:37 Approved by: Ruthie Vela M.D. on 04/03/2024 at 22:39
== END ==
PROVIDERS: Referring Provider Student in an Organized Health Care Education/Training Program; Visit Provider Student in an Organized Health Care Education/Training Program
DX: O36.60X0 Maternal care for excessive fetal growth, unspecified trimester, not applicable or unspecified (principal); Z3A.36 36 weeks gestation of pregnancy
CPT/HCPCS: 76815

== ENCOUNTER → 2024-04-05 10:59 | Outpatient (CLI) | payer OTHER, SELFPAY ==
[2023-12-08 21:51] VITALS: BMI 44.9
[2024-04-06 09:04] LABS: Strep Grp B PCR NEG for Grp B Strep
== END ==
PROVIDERS: Referring Provider Student in an Organized Health Care Education/Training Program; Visit Provider Student in an Organized Health Care Education/Training Program
DX: N89.8 Other specified noninflammatory disorders of vagina (principal); Z3A.36 36 weeks gestation of pregnancy
CPT/HCPCS: 87210; 87653

== ENCOUNTER 2024-04-21 14:50 | Inpatient (IN) | payer OTHER, SELFPAY ==
[2023-12-08 21:51] VITALS: BMI 44.9
--- NOTE | 2024-04-21 15:58 | PM.OBHP.IH.1 ---
OB HPI Date/Time Date of admission: 04/21/24 Date Patient Seen: 04/21/24 Time Patient Seen: 16:00 History of Present Condition Chief complaint: Induction KATY Calculator Estimated Delivery Date Method Current WG Current Estimate 04/28/24 LMP (Certain) 39w 0d : 3 Para: 0 Narrative: This is a 33 yo at 39w0d here for elective IOL. complicated by obesity, PCOS, LGA (92nd percentile), and hx of D&C for polyps. No contractions. Losing mucus plug. care: good care Dating criteria OB: LMP confirmed by 2nd trimester US Ultrasounds: normal 1st trimester US and normal mid trimester US Obstetrical complications: none Medical complications OB: none Preadmission Labs Last OB Lab Results: Blood Type A Positive 11/09/23 12:10 Antibody Screen Negative 11/09/23 12:10 Hct 36.0 % (36-46) 12/08/23 16:15 Hgb 12.5 g/dL (12.0-16.0) 12/08/23 16:15 Hep Bs Antigen Negative s/c (NEGATIVE) 10/20/23 10:02 Hepatitis C Antibody Negative s/c (NEGATIVE) 10/20/23 10:02 Rubella Antibody 8.5 IU/mL (>15) L 10/20/23 10:02 VZV IgG Antibody 1742 index (Immune >165) 10/20/23 10:02 Glucose 1 Hr 50 gm 145 mg/dL (76-139) H 01/22/24 11:01 Hemoglobin A1c 5.2 % (4.0-6.0) 10/20/23 10:02 Group B Strep (PCR) Neg for grp b strep 04/05/24 10:59 Glucose Tolerance Testin hr (fail) and 3 hr (pass) Genetic Screens: Cell-free DNA: Normal (XY) Prior (ies) Past Pregnancies Del. Date GA/Weeks Labor Lgth Wt Sex Route Outcome Anesthesia Place Delv Breastfeed Preg Comp Name 08/25/18 4-6 spontaneous 08/25/21 4-6 spontaneous Delivery Date: 08/25/18 Last Updated by: Shruti Malave RN passed spontaneously, no complications Delivery Date: 08/25/21 Last Updated by: Shruti Malave RN passed spontaneously, bled for a whole month Evaluation Evaluation Baseline heart rate: 145 Variability: Average (6-10) monitor accelerations: Present Monitor Decelerations: Absent Dilation (cm): 1.5 Effacement (%): 80 Dilation: 1-2 cm Effacement: >/=80% station: -2 [facility] Medical History (Updated 03/12/24 @ 12:28 by Radha Mario MA) ADHD (07/27/09) Uterine polyp Surgical History (Updated 03/12/24 @ 12:28 by Radha Mario MA) [place] teeth removed (10/27/11) [place] teeth extracted History of gynecologic surgery (~02/2023) Family History Mother Lupus Early onset Alzheimer's dementia Migraine Brain mass Preeclampsia Brother Autism Cardiomegaly Developmental disability Sickle-cell trait Sister Heart murmur Preeclampsia Grandmother Hypertension Pre-diabetes Breast cancer Alzheimer's dementia Aunt Osteoporosis Aunt ALS (amyotrophic lateral sclerosis) Family/Other Uterine cancer Family/Other Autism Father Mental health disorder Social History marital status: number of children: 1 household members: spouse and children lives independently: Yes caregiver/support person: Yes housing: house pets and animals: Yes (dogs) education level: college occupational status: unemployed current occupational exposures/hazards: No veda/druze: Gnosticist special veda needs: No travel history: over 6 months ago seatbelt use: always working smoke detector in home: Yes fire extinguisher in home: No carbon monox detector in home: Yes firearms in home: No do you feel safe at home: Yes Smoking Status: Never smoker second hand exposure: No alcohol intake: former substance use type: does not use during the past year weight has: other well-balanced diet: daily or most days daily servings fruits/ve or more times/day caffeine: Yes (minimal in recent history) Type(s) of exercise: walking frequency: 5-6 times per week Meds Home Medications and Allergies Home Medications Medication Instructions Recorded Confirmed Type albuterol sulfate 90 mcg/actuation 2 puff inhalation Q4-6H PRN sob 09/20/23 04/19/24 History aerosol inhaler cholecalciferol (vitamin D3) 50 50 mcg PO DAILY 09/20/23 04/19/24 History mcg (2,000 unit) capsule vitamin-ferrous sulfate 1 tab PO 09/20/23 04/19/24 History 27 mg iron-folic acid 0.8 mg tablet aspirin 81 mg tablet,delayed 81 mg PO DAILY #90 tabs 10/20/23 04/19/24 Rx release (Adult Aspirin Regimen) doxylamine succinate 25 mg tablet 12.5 mg (1/2 x 25 mg) PO BEDTIME 11/21/23 04/19/24 Rx (Unisom (doxylamine)) PRN nausea and vomiting #30 tabs pyridoxine (vitamin B6) 50 mg mg PO 12/08/23 04/19/24 History tablet nystatin 100,000 unit/gram topical 1 applic topical TID #30 grams 01/12/24 04/19/24 Rx ointment Breast pump(double electric w/ #1 ea 01/18/24 04/19/24 Rx supplies) vitamins no.175-iron 1 tab PO DAILY #90 tabs 04/05/24 04/19/24 Rx fumarate 29 mg-folic acid 1 mg tablet Allergies Allergy/AdvReac Type Severity Reaction Status Date / Time Penicillins Allergy Severe Anaphylaxis Verified 04/19/24 10:40 ibuprofen Allergy Swelling Verified 04/19/24 10:40 of body Review of Systems Review of Systems ROS: Yes All systems reviewed with the patient and are negative except as otherwise documented OB Exam Narrative Exam Narrative: NAD, resting comfortably in bed Assessment and Plan Assessment and Plan Assessment and Plan narrative: 33 yo at 39w0d here for elective IOL. complicated by obesity, PCOS, LGA (92nd percentile), and hx of D&C for polyps. SVE 1.5/80/-2 -vag miso 25 mcg q4hrs -anticipate Time-Based Coding :: 30 minutes spent with patient and on the chart (including review of chart, obtaining history, exam, reviewing outside data, placing orders, documenting exam and treatment plan, and counseling patient) on 04/21.
[2024-04-21 16:39] VITALS: BP 131/60
[2024-04-21 18:25] LABS: Add Manual Diff / Slide Review NO; Basophils Absolute Auto 100 /uL (0-100); Basophils Percent Auto 0.7 % (0-2); Eosinophils Absolute Auto 200 /uL (0-450); Eosinophils Percent Auto 1.7 % (2-4); Hematocrit 35.4 % (36-46); Lymphocytes Absolute Auto 2700 /uL (1100-4500); Lymphocytes Percent Auto 24.9 % (25-40); Mean Corpuscular Volume 82.3 fL (80-100); Monocytes Absolute Auto 700 /uL (0-900); Monocytes Percent Auto 6.4 % (3-14); Neutrophils Absolute Auto 7100 /uL (1500-7000); Neutrophils Percent Auto 66.3 % (50-75); Platelet Count 251 X10^3/uL (150-400); Red Cell Distribution Width 15.3 % (11.6-14.8); White Blood Cell Count 10.7 X10^3/uL (4.5-11.0)
[2024-04-21] MEDS: miSOPROStoL 25 MCG TABLET VAG ×2 (18:34→22:25)
[2024-04-22] MEDS: ONDANSETRON 4 MG/2 ML INJ IV ×3 (01:19→21:39)
[2024-04-22] MEDS: fentaNYL 100 MCG/2 ML INJ 50 MCG IV (01:29)
[2024-04-22] MEDS: LACTATED RINGERS 1,000 ML 999 ML IV ×3 (02:06→09:49)
--- NOTE | 2024-04-22 03:41 | P.PCN_ITS ---
[facility] <Annette Dejesus CRNA - Last Filed: 04/24/24 11:30> Pre-procedure PMH/ROS narrative: 33yr old requesting ANIBAL for labor pain. H/O Obesity, PCOS, ADHD. PSH/Anesthesia history narrative: D&C, [place] teeth ASA Class: III Labs: Hct 35.4 % (36-46) L 04/21/24 18:18 Plt Count 251 X10^3/uL (150-400) 04/21/24 18:18 Medications: Current Medications Generic Name Dose Route Start Last Admin Trade Name Freq PRN Reason Stop Dose Admin Calcium Carbonate 1,000 mg 04/21/24 15:56 Calcium Carbonate 500 Mg Tab PO Q2HR PRN Dyspepsia Carboprost Tromethamine 250 mcg 04/21/24 15:54 Carboprost 250 Mcg/Ml Ampul IM Q90M PRN Bleeding Fentanyl 50 mcg 04/21/24 15:56 04/22/24 01:29 Fentanyl 100 Mcg/2 Ml Inj IV 50 mcg Q1H PRN Administration Pain, Moderate (4-6) Oxytocin/Lactated Ringer's 30 unit in 500 mls @ 200 mls/hr 04/21/24 15:54 Oxytocin Premix IV CONT PRN Bleeding Protocol Tranexamic Acid 1,000 mg/ 100 mls @ 600 mls/hr 04/21/24 15:54 Sodium Chloride IV NOW PRN Bleeding Lidocaine HCl 20 ml 04/21/24 15:54 Lidocaine 1% 20 Ml INJ INTRA-OP PRN Post Delivery Methylergonovine Maleate 0.2 mg 04/21/24 15:54 Methylergonovine 0.2 Mg Tablet PO Q6HR PRN Heavy Bleeding Methylergonovine Maleate 0.2 mg 04/21/24 15:54 Methylergonovine 0.2 Mg/Ml Vial IM NOW PRN Bleeding Mineral Oil 30 ml 04/21/24 15:54 Mineral Oil 30 Ml Udc TOP PRN PRN Version Misoprostol 800 mcg 04/21/24 15:54 Misoprostol 200 Mcg Tablet GA NOW PRN Bleeding Misoprostol 400 mcg 04/21/24 15:54 Misoprostol 200 Mcg Tablet SL NOW PRN Bleeding Misoprostol 25 mcg 04/21/24 15:56 04/21/24 22:25 Misoprostol 25 Mcg Tablet VAG 25 mcg Q4H PRN Administration cervical ripening Naloxone HCl 0.2 mg 04/21/24 15:54 Naloxone 0.4 Mg/Ml Vial IV Q2MIN PRN Opiate Reversal Ondansetron HCl 4 mg 04/21/24 15:56 04/22/24 01:19 Ondansetron 4 Mg/2 Ml Inj IV 4 mg Q4HR PRN Administration Nausea And Vomiting Oxytocin 10 unit 04/21/24 15:54 Oxytocin 10 Unit/Ml Vial IM NOW PRN Bleeding Allergies: Allergies Allergy/AdvReac Type Severity Reaction Status Date / Time Penicillins Allergy Severe Anaphylaxis Verified 04/19/24 10:40 ibuprofen Allergy Swelling Verified 04/19/24 10:40 of body --: Attempted epidural (in room at 0230 to consent) Difficult to get patient into postion. Pt crying. Attempted at L4-5 then L3-4. At L4-5 bone encountered. Attempted L3-4 pt complained of pain with epidural needle advancement. Unable to locate epidural space. Decision to do SAB for some pain relief and rest and then re-attempt epidural. Epidural placed at 0420. Able to follow same course as SAB. L3-4 midline needle insertion with slight to right needle advancement. In room at 0411 for re-attempt at epidural. prep at 0416/catheter threaded at 0420/test dose negative at 0422/pump started at 0437. Procedure Insertion date: 04/22/24 Insertion time: 03:16 Prep/Local: 1% lidocaine (chloroprep) Interspace: L3-4 for SAB attemted L4-5 for epidural Patient position: sitting Needle: 18 gauge Three Stage Mediatead (27g W for SAB) Loss of resistance with: saline SHERLYN at (cm): 8 Catheter placed at SKIN (cm): 14 Catheter in SPACE (cm): 6 Insertion: Yes CSF, No Blood, No Paresthesia with insertion, No Paresthesia with injection and No Test dose reaction Initial Medications TEST DOSE time: 04:22 TEST DOSE: 1.5% lidocaine with epinephrine 1:200k (mL): 3 BOLUS DOSE time: 03:16 BOLUS DOSE (mL): 1 BOLUS DOSE med: other (.75% marcaine at 0316) Infusion INFUSION: 0.125% bupivacaine and with fentanyl 2 mcg/mL Initial rate (mL/hr): 7 Post-procedure Anesthesia date START: 04/22/24 Anesthesia time START: 02:30 <Jeannie Mae CRNA - Last Filed: 04/22/24 12:32> Infusion Subsequent interventions: 1200: Infusion bag empty x 10 minutes, pt c/o increasing contraction pain. Bolus of 8mL infusate + increased basal rate to 8mL/hr after hanging new bag. - KELLI LEMOS <Jennifer Gaines CRNA - Last Filed: 04/23/24 02:54> Post-procedure Anesthesia date END: 04/23/24 Anesthesia time END: 02:40 Post-procedure Anesthesia Assessment: Yes CV function: HR/BP stable, Yes Resp function: RR/sat/airway adequate, Yes Post-op hydration adequate, Yes Pain control adequate, Yes Nausea & vomiting absent, Yes Temperature > 36 C, Yes Mental status appropriate and Yes Anesthesia complications
[2024-04-22] MEDS: OXYTOCIN PREMIX 30 UNIT/500 ML PLAST..BAG IV (07:54)
--- NOTE | 2024-04-22 09:01 | PM.OBPNLAB ---
Date/Time Date Patient Seen: 04/22/24 Time Patient Seen: 07:15 Pain Control Pain control: tolerating well and epidural Pelvic Exam Dilation (cm): 5 Effacement (%): 90 station: 0 Amniotic membrane status: Ruptured Status status: Category l Heart Rate Baseline: 145 Monitor Accelerations: Present Monitor Decelerations: Episodic Monitor Variability: Moderate Assessment and Plan Assessment: induction ongoing Plan: continuous present management Comments: 33 yo here for elective IOL, now 39w1d. Current SVE 5/90/0. -s/p 2 doses vaginal miso 25 mcg -SROM at midnight -epidural in place -begin pitocin augmentation for more regular contration pattern
--- NOTE | 2024-04-22 13:11 | PM.OBPNLAB ---
Date/Time Date Patient Seen: 04/22/24 Pain Control Pain control: tolerating well and epidural Pelvic Exam Dilation (cm): 6 Effacement (%): 90 station: +1 Amniotic membrane status: Ruptured Contractions Pitocin rate (mU/min): 8 Contraction frequency (min): 2 Contraction pattern: Regular Status status: Category l Heart Rate Baseline: 145 Monitor Accelerations: Present Monitor Decelerations: Early Monitor Variability: Moderate Assessment and Plan Assessment: induction ongoing Plan: continuous present management Comments: PRAKASH /+1 -IUPC placed -Continue current management
--- NOTE | 2024-04-22 17:05 | PM.OBPNLAB ---
Date/Time Date Patient Seen: 04/22/24 Time Patient Seen: 16:45 Pain Control Pain control: tolerating well and epidural Pelvic Exam Dilation (cm): 8 Effacement (%): 90 station: +1 Amniotic membrane status: Ruptured Contractions Contractions on admission: regular Contraction frequency (min): 2 Contraction pattern: Regular Status status: Category l Heart Rate Baseline: 155 Monitor Accelerations: Present Monitor Decelerations: Absent Monitor Variability: Moderate Assessment and Plan Assessment: induction ongoing Plan: continuous present management Comments: PRAKASH /+[address] with adequate contractions If no cervical change in next 4-6 hours will proceed with delivery
--- NOTE | 2024-04-22 20:26 | PM.OBPNLAB ---
Pain Control Pain control: epidural Pelvic Exam Dilation (cm): 9 Effacement (%): 90 station: +1 Amniotic membrane status: Ruptured Contractions Monitor mode: Internal Pitocin rate (mU/min): 14 Contraction frequency (min): 2 Contraction pattern: Regular Status status: Category l Heart Rate Baseline: 145 Monitor Accelerations: Present Monitor Decelerations: Episodic Monitor Variability: Moderate Assessment and Plan Assessment: induction ongoing Plan: continuous present management Comments: SVE now /+1. Pitocin at 14. Continuing position changes with nursing. Concern for cephalopelvic disproportion with LGA baby, concern for malposition of fetus in OP positioning. Continue to aim for at this time.
--- NOTE | 2024-04-23 00:19 | PM.OBPNLAB ---
Date/Time Date Patient Seen: 04/23/24 Time Patient Seen: 12:15 Pain Control Pain control: epidural Comments: Painful, pressure and pain Pelvic Exam Dilation (cm): 9.5 Effacement (%): 90 station: +1 Amniotic membrane status: Ruptured Contractions Monitor mode: Internal Pitocin rate (mU/min): 8 Contraction frequency (min): 2 Contraction pattern: Regular Status status: Category l Heart Rate Baseline: 135 Monitor Accelerations: Present Monitor Decelerations: Absent Monitor Variability: Moderate Assessment and Plan Assessment: active labor and induction ongoing Plan: continuous present management Comments: SVE 9.5/100/+1. Lots of pain and pressure, anesthesia reassessing, appreciate support. Concern for cephalopelvic disproportion with LGA baby. Continue to aim for at this time.
[2024-04-23] MEDS: FENT 2MCG/ML BUPIV 0.125% EPI 200 MCG/100 ML PLAST..BAG 8 MCG EPIDURAL (00:50)
--- NOTE | 2024-04-23 01:14 | PM.OBPNLAB ---
Date/Time Date Patient Seen: 04/23/24 Time Patient Seen: 01:15 Pain Control Pain control: tolerating well Pelvic Exam Dilation (cm): 9.5 Effacement (%): 90 station: +1 Amniotic membrane status: Ruptured Contractions Monitor mode: Internal Pitocin rate (mU/min): 6 Contraction frequency (min): 2 Contraction pattern: Regular Status status: Category l Heart Rate Baseline: 155 Monitor Accelerations: Present Monitor Decelerations: Absent Monitor Variability: Moderate Assessment and Plan Assessment: induction ongoing Plan: Comments: SVE 9.5/100/+1. Anterior lip not reducible. Significant caput and no true descent of head. At this time, I recommend delivery for arrest of dilation and cephalopelvic disproportion with LGA baby. It was explained to the patient that a section is a surgery to deliver the baby through an incision in the abdominal wall and uterus.? All procedures can be associated with risk and unforeseen complications, which can be immediate or delayed.? Risks and complications of section include, but are not limited to:? infection of the uterus, pelvic organs, or skin; inadvertent injury to internal organs such as the bowel, bladder, or possibly even the baby; blood loss, transfusion, and/or life-threatening hemorrhage requiring hysterectomy; blood clots in the legs, pelvic organs, or lungs; adverse reaction to medications or anesthesia during surgery; development of placenta accreta spectrum in a subsequent ; and increased risk of section in a subsequent .
[2024-04-23] MEDS: CITRIC ACID/SODIUM CITRATE 15 ML SOLUTION 30 ML PO (02:06)
[2024-04-23] MEDS: TRANEXAMIC ACID 1,000 MG in SODIUM CHLORIDE 0.9% 100 ML 600 MG IV (03:22)
[2024-04-23] MEDS: CEFAZOLIN 2 GM/100 ML PREMIX 100 ML IV (03:26)
[2024-04-23 04:14] VITALS: BP 134/85; PULSE 110; RESP 28; TEMP 38.2; O2SAT 97
--- NOTE | 2024-04-23 04:18 | P.OP_ITS ---
Operative Date/Time/Diagnoses Date of procedure: 04/23/24 Pre-op diagnosis: Arrest of dilation, cephalopelvic disproportion, OP position Post-op diagnosis: same Procedure & Clinicians Procedure: Primary delivery Same procedure as scheduled: Yes Indications: cephalopelvic disproportion, arrest of dilation, OP position Surgeon: Abbie Diaz Assessment Analyst: Natalee Baldwin Reason for Assessment Analyst: unplanned Anesthesia Type: General (conversion to general following closure of uterus) and Epidural Operative Notes Findings: Normal uterus, ovaries, and tubes Closure Type: primary Intraoperative meds administered: Pitocin and Tranexamic acid Applied: Catheter Estimated Blood Loss (mL): 2,852 Blood products transfused: packed red blood cells Procedure in detail: OPERATIVE COURSE: The patient was taken to the operating room where epidural anesthesia was dosed to surgical level. She was then prepared and draped in the normal sterile fashion in the dorsal supine position with a leftward tilt. Anesthesia was tested and found to be adequate. A Pfannensteil skin incision was then made with the scalpel and carried through to the underlying layer of fascia with the scalpel. The fascia was incised in the midline and the incision extended laterally with manual traction. The superior aspect of the fascial incision was then grasped with Rodger clamps, elevated with the help of the surgical technology instructor, and the underlying rectus muscles dissected off bluntly and sharply where needed. The rectus muscles were then in the midline, and the peritoneum was identified and entered bluntly. The peritoneal incision was then extended with good visualization of the bladder. Hilario retractor was placed. The vesicouterine peritoneum identified. The lower uterine segment incised in a transverse fashion with the scalpel, with the surgical technology instructor providing suction. The uterine incision was then extended superolaterally by pulling superolaterally on both sides. Membranes were ruptured and fluid was clear. The infant's head was attempted to be flexed out of ROP position by primary surgeon, however unable to elevate the head to the hysterotomy. The surgical technology instructor tried and was able to flex the head out of ROP position and baby delivered atraumatically, with fundal pressure by the surgical technology instructor. The nose and mouth were suctioned with bulb suction and the cord was clamped and cut. The infant was handed off to the waiting nursing staff. Cord blood was collected for Rh status. The placenta was then delivered with gentle cord traction. The uterus was then exteriorized and cleared of all clots and debris. The uterine incision had a deep extension on the left lateral edge with multiple pumping vessels. The hysterotomy was repaired starting on the left lateral edge to the midline and into the left lateral deep extension with 0 vicryl in a running, locked fashion. TXA was given during this time and good hemostasis was obtained. Then attention was paid to the right lateral edge and a running, locked suture of 0 vicryl was placed to the midline. At this point, bleeding had stabilized. The uterus was returned to the abdomen. Anatomy was evaluated and upper vagina was present in a U shape anterior to the hysterotomy site. Dr. Bajwa (OBGYN economic adviser) was paged to evaluate. Dr. Baldwin scrubbed out on arrival of Dr. Bajwa. A layer of running, locked suture of 0 vicryl was used to incorporate the upper vagina into the uterus at the hysterotomy. A second layer of 0 monocryl was used to obtain excellent hemostasis. There was an area of peritoneum that had torn on the left lateral edge of the uterus with bowel coming through. A 2-0 vicryl was used to delicately repair this area of peritoneum. The gutters were cleared of all clots. Hysterotomy was investigated and found to be hemostatic. The peritoneum was closed with 3-0 vicryl. The fascia was reapproximated with 0 vicryl in a running fashion from each lateral edge meeting in the midline. The subcutaneous tissue was reapproximated with 3-0 vicryl. The skin was closed with 4-0 monocryl. The surgical technology instructor helped with retraction during closures. SPONGE AND NEEDLE COUNTS: Correct x3. DRESSING: Glue and telfla dressing ANTICOAGULATION: SCDs applied prior to Surgery Preop antibiotics given (see MAR). The patient was taken to recovery room having tolerated procedure well. Post-operative Condition: stable Disposition: PACU Aftercare: routine postop
[2024-04-23 04:19] VITALS: BP 141/90; PULSE 110; RESP 27; O2SAT 98
[2024-04-23 04:24] VITALS: BP 126/91; PULSE 111; RESP 17; O2SAT 96
[2024-04-23 04:29] VITALS: BP 130/90; PULSE 111; RESP 25; O2SAT 98
[2024-04-23 04:34] VITALS: BP 130/86; PULSE 100; RESP 25; O2SAT 97
[2024-04-23 04:39] VITALS: BP 130/86; PULSE 100; RESP 25; TEMP 39.1; O2SAT 97
[2024-04-23] MEDS: ACETAMINOPHEN IV 1,000 MG/100 ML VIAL 400 MG IV (04:45)
--- NOTE | 2024-04-23 04:55 | PC.NURSE ---
Order for blood received from Dr Diaz, unable to connect it clerically in [facility], required assistance of lab to place appropriate order for blood product.
--- NOTE | 2024-04-23 04:59 | SUR.PHASEI ---
Pt transferred to in bed. Pt awake, alert. C/O pain with fundal check, otherwise sleeping and resting comfortably. SBAR report and bedside handoff including fundal check with Dari RN. Updated Dr Pollock regarding temp 102.3and IV APAP ordered by anesth. and started.
[2024-04-23] MEDS: MAGNESIUM HYDROXIDE 30 ML UDC PO (05:47)
[2024-04-23] MEDS: MORPHINE 2 MG/ML INJ IV (05:47)
[2024-04-23] MEDS: OXYCODONE IR 5 MG TABLET PO ×5 (05:48→21:12)
[2024-04-23] MEDS: GENTAMICIN 500 MG in SODIUM CHLORIDE 0.9% 100 ML 100 MG IV (06:00)
[2024-04-23] MEDS: CLINDAMYCIN 900 MG/50 ML PIGGYBACK 50 MG IV ×3 (07:15→23:18)
[2024-04-23] MEDS: PRENATAL VIT,CALC/IRON/FOLIC 1 TABLET 1 TAB PO (09:49)
[2024-04-23] MEDS: DOCUSATE 100 MG CAPSULE PO (09:49)
[2024-04-23] MEDS: FERROUS SULFATE 325 MG TABLET PO (09:49)
[2024-04-23 09:52] LABS: Add Manual Diff / Slide Review NO; Basophils Absolute Auto 200 /uL (0-100); Basophils Percent Auto 0.9 % (0-2); Eosinophils Absolute Auto 100 /uL (0-450); Eosinophils Percent Auto 0.3 % (2-4); Hematocrit 30.3 % (36-46); Hemoglobin 10.2 g/dL (12.0-16.0); Lymphocytes Absolute Auto 2500 /uL (1100-4500); Lymphocytes Percent Auto 10.8 % (25-40); Mean Corpuscular HGB Conc 33.8 % (30-36); Mean Corpuscular Hemoglobin 28.2 PG (26-34); Mean Corpuscular Volume 83.5 fL (80-100); Monocytes Absolute Auto 1900 /uL (0-900); Monocytes Percent Auto 8.2 % (3-14); Neutrophils Absolute Auto 18600 /uL (1500-7000); Neutrophils Percent Auto 79.8 % (50-75); Platelet Count 197 X10^3/uL (150-400); Red Blood Cell Count 3.63 X10^6/uL (4.0-5.2); Red Cell Distribution Width 15.5 % (11.6-14.8); White Blood Cell Count 23.3 X10^3/uL (4.5-11.0)
[2024-04-23 10:06] LABS: Alanine Aminotransferase 23 IU/L (<35); Albumin 2.7 g/dL (3.5-5.0); Alkaline Phosphatase 95 U/L (38-126); Aspartate Aminotransferase 46 IU/L (14-36); BUN Creatinine Ratio 6.9 (6-22); Bilirubin Total 0.8 mg/dL (0.2-1.3); Blood Urea Nitrogen 9 mg/dL (7-17); Calcium 8.2 mg/dL (8.4-10.2); Carbon Dioxide 21 mmol/L (22-32); Chloride 104 mmol/L (98-107); Estimated Glomerular Filt Rate 56 mL/min (>60); Globulin 2.6 g/dL (1.7-4.1); Glucose 109 mg/dL (70-100); HEMOLYSIS < 15 (0-50); Potassium 3.5 mmol/L (3.4-5.1); Sodium 131 mmol/L (137-145); Total Protein 5.3 g/dL (6.3-8.2)
[2024-04-23] MEDS: ACETAMINOPHEN 325 MG TABLET 650 MG PO ×2 (13:00→18:49)
[2024-04-23 17:49] LABS: Gentamicin Random 3.1 ug/mL (1.0-8.0)
[2024-04-24] MEDS: ACETAMINOPHEN 325 MG TABLET 650 MG PO ×4 (01:00→21:09)
[2024-04-24] MEDS: OXYCODONE IR 5 MG TABLET PO ×2 (01:00→06:50)
[2024-04-24] MEDS: GENTAMICIN 500 MG in SODIUM CHLORIDE 0.9% 100 ML 100 MG IV (05:59)
[2024-04-24] MEDS: FERROUS SULFATE 325 MG TABLET PO (08:06)
[2024-04-24] MEDS: PRENATAL VIT,CALC/IRON/FOLIC 1 TABLET 1 TAB PO (08:06)
--- NOTE | 2024-04-24 09:10 | P.PNOB_ITS ---
Subjective - OB Subjective Patient comments: incisional pain baby status: bottle feeding well feeding status: breast and bottle feeding Narrative: This is a 33 yo G3 now P1 post op day 1 from pLT for arrest of dilation, CPD, and OP positioning. CS complicated by general anesthesia, PPH and lacerations into upper vagina. Patient reports pain is not under control. She is having significant cramping. Bleeding minimal. Ambulating minimally - did walk to bathroom to pee this AM. Breast and formula feeding. Date Patient Seen: 04/24/24 Time Patient Seen: 09:00 Exam Vital Signs (past 8 hours): Oxygen Delivery Method Room Air Narrative Exam Narrative: Patient in discomfort. Breathing easily. Objective Labs 04/23/24 09:40 04/23/24 09:40 Labs: Laboratory Results - last 24 hr 04/23/24 04/23/24 09:40 17:00 WBC 23.3 H D RBC 3.63 L Hgb 10.2 L Hct 30.3 L MCV 83.5 MCH 28.2 MCHC 33.8 RDW 15.5 H Plt Count 197 Neut % (Auto) 79.8 H Lymph % (Auto) 10.8 L [place] % (Auto) 8.2 Eos % (Auto) 0.3 L Baso % (Auto) 0.9 Neut # (Auto) 87983 H Lymph # (Auto) 2500 [place] # (Auto) 1900 H Eos # (Auto) 100 Baso # (Auto) 200 H Sodium 131 L Potassium 3.5 Chloride 104 Carbon Dioxide 21 L BUN 9 Creatinine 1.30 H Estimated GFR 56 L BUN/Creatinine Ratio 6.9 Glucose 109 H Calcium 8.2 L Total Bilirubin 0.8 AST 46 H ALT 23 Alkaline Phosphatase 95 Total Protein 5.3 L Albumin 2.7 L Globulin 2.6 Albumin/Globulin Ratio 1.0 Random Gentamicin 3.1 Blood Type A Positive Antibody Screen Negative Assessment & Plan Plan day: 1 plan OB: routine postop care Comments: This is a 33 yo G3 now P1 post op day 1 from pLTCS for arrest of dilation, CPD, and OP positioning. CS complicated by general anesthesia, PPH and lacerations into upper vagina. complicated by LGA, obesity and PCOS. #PLTCS -routine post op care -increase oxycodone to 10 mg q4hr for pain control #PPH QBL 2852 -hgb stable at 10.2 following 1 unit PRBC intraoperatively #Obesity -will start lovenox daily for minimal ambulation, obesity, and s/p delivery #Fever Immediate post op fever of 102 F. -no further fevers -continue clinda/gent for 48 hours total Time-Based Coding :: 30 minutes spent with patient and on the chart (including review of chart, obtaining history, exam, reviewing outside data, placing orders, documenting exam and treatment plan, and counseling patient) on 04/24.
[2024-04-24] MEDS: OXYCODONE IR 5 MG TABLET 10 MG PO ×4 (09:18→21:10)
[2024-04-24] MEDS: ENOXAPARIN 40 MG/0.4 ML SYRINGE SUBCUT ×2 (09:19→21:09)
[2024-04-24] MEDS: CLINDAMYCIN 900 MG/50 ML PIGGYBACK 50 MG IV ×2 (09:19→17:36)
[2024-04-24] MEDS: DOCUSATE 100 MG CAPSULE PO (09:19)
[2024-04-24] MEDS: ONDANSETRON 4 MG/2 ML INJ IV ×2 (13:54→22:15)
[2024-04-24] MEDS: MAGNESIUM HYDROXIDE 30 ML UDC PO (17:35)
[2024-04-25] MEDS: CLINDAMYCIN 900 MG/50 ML PIGGYBACK 50 MG IV (02:09)
[2024-04-25] MEDS: CALCIUM CARBONATE 500 MG TAB 1000 MG PO (02:34)
[2024-04-25] MEDS: ACETAMINOPHEN 325 MG TABLET 650 MG PO ×2 (03:32→09:56)
[2024-04-25] MEDS: DOCUSATE 100 MG CAPSULE PO (09:56)
[2024-04-25] MEDS: ENOXAPARIN 40 MG/0.4 ML SYRINGE SUBCUT (09:56)
[2024-04-25] MEDS: TRAMADOL 50 MG TABLET PO (09:56)
[2024-04-25] MEDS: FERROUS SULFATE 325 MG TABLET PO (10:03)
[2024-04-25] MEDS: PRENATAL VIT,CALC/IRON/FOLIC 1 TABLET 1 TAB PO (10:03)
[2024-04-25] MEDS: TRAMADOL 50 MG TABLET 100 MG PO (13:45)
[2024-04-25] MEDS: HYDROCODONE/ACET 10/325 TABLET 1 TAB PO ×2 (15:59→20:08)
--- NOTE | 2024-04-25 16:38 | PM.OBPN.1 ---
Subjective - OB Subjective Patient comments: tolerating diet and flatus present [place] baby status: doing well and bottle feeding well [place] feeding status: breast and bottle feeding Narrative: This is a 33 yo G3 now P1 post op day 2 from pLTCS for arrest of dilation, CPD, and OP positioning at 39w2d. CS complicated by general anesthesia, PPH and lacerations into upper vagina. Patient reports pain is still not under control however improved from yesterday. She is passing gas and this seems to have helped pain. Bleeding minimal. Sitting in chair this morning. Date Patient Seen: 04/25/24 Time Patient Seen: 07:30 Exam Vital Signs (past 8 hours): Oxygen Delivery Method Room Air Narrative Exam Narrative: Sitting comfortably in chair. NAD, breathing easily. Objective Labs 04/23/24 09:40 04/23/24 09:40 Assessment & Plan Plan day: 2 plan OB: routine postop care Comments: This is a 33 yo G3 now P1 post op day 2 from pLTCS for arrest of dilation, CPD, and OP positioning at 39w2d. CS complicated by general anesthesia, PPH and lacerations into upper vagina. complicated by LGA, obesity and PCOS. #PLTCS -routine post op care -discontinued oxycodone 10 mg, trial of tramadol 50-100 mg unsuccessful as well -trial of hydrocodone 10mg-acetominophen 325 mg q4 hrs -decrease tylenol from 650 mg q4 to 325 mg #PPH QBL 2852 -hgb stable at 10.2 following 1 unit PRBC intraoperatively #Obesity - lovenox daily for minimal ambulation, obesity, and s/p delivery #Fever Immediate post op fever of 102 F. -no further fevers -discontinue clinda/gent for 48 hours total Time-Based Coding :: 35 minutes spent with patient and on the chart (including review of chart, obtaining history, exam, reviewing outside data, placing orders, documenting exam and treatment plan, and counseling patient) on 04/25.
[2024-04-25] MEDS: MAGNESIUM HYDROXIDE 30 ML UDC PO (18:54)
[2024-04-26] MEDS: HYDROCODONE/ACET 10/325 TABLET 1 TAB PO ×3 (00:12→08:11)
[2024-04-26] MEDS: LANOLIN OINT 7 GM 1 APPLIC TOP (08:05)
[2024-04-26] MEDS: ENOXAPARIN 40 MG/0.4 ML SYRINGE SUBCUT (08:06)
[2024-04-26] MEDS: PRENATAL VIT,CALC/IRON/FOLIC 1 TABLET 1 TAB PO (08:06)
[2024-04-26] MEDS: FERROUS SULFATE 325 MG TABLET PO (08:06)
[2024-04-26] MEDS: DOCUSATE 100 MG CAPSULE PO (08:06)
--- NOTE | 2024-04-26 09:46 | P.DS_ITS ---
Discharge Providers Provider Date of admission: 04/21/24 14:50 Discharge Date: 04/29/24 Primary care physician: Mile [facility] Provider Consults: 04/21/24 15:55 Consult to Anesthesiology Urgent Comment: Consulting Provider: Anesthesiologist Reason for consultation: Epidural 04/23/24 04:57 Consult to Academic Registrar Routine Comment: Discharge provider: Abbie Diaz MD Summary Hospital Course Date Patient Seen: 04/26/24 Time Patient Seen: 07:30 Diagnoses: Term , primary delivery, PPH Hospital Course: This is a 33 yo G3 now P1 post op day 2 from pLTCS for arrest of dilation, CPD, and OP positioning at 39w2d. CS complicated by general anesthesia, PPH and lacerations into upper vagina. She required one unit of PRBC intraoperatively. CBC stable following blood transfusion. She had fever immediately following up to 102 and received gent and clinda for 48 hrs with no further fevers. Pain was difficult to control. Finally managed with hydrocodone-acetominophen. Passing gas. Difficulty with , pumping and supplementing. Will follow up in 2 weeks. Peripartum Data Delivery Method: Section Laceration Description: None complications: transfusion Status at Discharge Cognitive/behavioral status at discharge: oriented Functional status at discharge: independent ambulation Overall status at discharge: patient is back to baseline Time Spent with Patient Time attestation: Total time spent providing and/or coordinating discharge services: 35 minutes on day of discharge. Time spent: Greater than 30 minutes Objective Labs 04/23/24 09:40 04/23/24 09:40 Exam Vital Signs (past 8 hours): Oxygen Delivery Method Room Air Narrative Exam Narrative: NAD, breathing easily. Discharge Plan Discharge Plan Patient Disposition: Home Discharge orders & Medications Prescriptions: New acetaminophen 325 mg Tablet 325 mg PO Q4H Qty: 60 0RF hydrocodone-acetaminophen 10-325 mg Tablet 1 tab PO Q4HR PRN (Reason: Pain, Moderate (4-6)) Qty: 30 0RF docusate sodium 100 mg Capsule 100 mg PO DAILY Qty: 60 0RF enoxaparin [Lovenox] 40 mg/0.4 mL Syringe 40 mg SUBCUT DAILY Qty: 8 0RF Continued pyridoxine (vitamin B6) 50 mg tablet 50 mg PO DAILY PNV no.175-iron fum-folic acid 29-1 mg tablet 1 tab PO DAILY Qty: 90 3RF (DME) Breast pump(double electric w/ supplies) See Rx Instructions .ROUTE .MEDSUPPLY Qty: 1 0RF Rx Instructions: As directed Unisom (doxylamine) 25 mg tablet 12.5 mg PO BEDTIME PRN (Reason: nausea and vomiting) Qty: 30 0RF nystatin 100,000 unit/gram ointment 1 applic topical TID Qty: 30 0RF vit-ferrous sulfat-FA 27 mg iron- 0.8 mg tablet 1 tab PO DAILY cholecalciferol (vitamin D3) 50 mcg (2,000 unit) capsule 50 mcg PO DAILY albuterol sulfate 90 mcg/actuation HFA aerosol inhaler 2 puff inhalation Q4-6H PRN (Reason: sob) Discontinued aspirin [Adult Aspirin Regimen] 81 mg tablet,delayed release (DR/EC) 81 mg PO DAILY Qty: 90 3RF Follow up/Referrals: Abbie Diaz MD [Physician] - 04/29/24 11:00 am (Please Follow up for incisional check up appointment on Monday @ 11:00 am. Please check in at 10:45am! appointment also on Apr 29 at the same time!) Visit Report/Discharge Packet Instructions: DI for Hemorrhage, DI for Depression Stand Alone Forms: Discharge: Care, Patient Portal/API, Stroke Signs & Symptoms Discharge Data Primary Care Provider: ProviderMile Discharges patient from system. Discharge Date/Time: 04/26/24 11:51
== END 2024-04-26 11:51 | disposition home or self-care (01) | DRG 787 ==
PROVIDERS: Admitting Provider Student in an Organized Health Care Education/Training Program; Referring Provider Student in an Organized Health Care Education/Training Program; Visit Provider Student in an Organized Health Care Education/Training Program
PROC: (CPT 59514; principal; 2024-04-23 02:15)
DX: O62.1 Secondary uterine inertia (principal); O71.5 Other obstetric injury to pelvic organs; O86.4 Pyrexia of unknown origin following delivery; O67.8 Other intrapartum hemorrhage; O99.214 Obesity complicating childbirth; Z3A.39 39 weeks gestation of pregnancy; Z37.0 Single live birth; O66.2 Obstructed labor due to unusually large fetus; Z67.10 Type A blood, Rh positive; O99.284 Endocrine, nutritional and metabolic diseases complicating childbirth; E28.2 Polycystic ovarian syndrome
CPT/HCPCS: 36415; 36430; 59050; 59200; 76815; 80053; 80170; 85025; 86850; 86900; 86901; P9016; G0379; J0134; J0330; J0690; J1650; J2270; J2274; J2405; J2590; J2704; J3010